=== PATIENT | male | born 1975 | race Caucasian/White ===

== ENCOUNTER 2019-08-20 18:37 | Emergency (ER) | payer BC ==
[~2019-08-20] VITALS: Ht 177.8 cm; Wt 93.1 kg
[2019-08-20] MEDS ORDERED: LACTATED RINGERS 1,000 ML IV ONE (18:41)
--- OUTSIDE RECORDS SUMMARY | 2019-08-20 18:42 | XMS REPORT | CCD ---
Author Author Ankit Jones Organization Lashell Friend MD, [facility] Address [address] [place] [address] Phone Care Team Providers Care Meat Curer Name Role Phone PP Unavailable CCM Unavailable Summary Purpose Interface Exchange Insurance Providers Payer name Policy type / Coverage type Covered libertarian ID Effective Begin Date Effective End Date Blue Cross Blue Shield [facility] e Cross/Blue Shield [id number] Unknown Unk nown Family history Brother Diagnosis Age At Onset No Family Disease Entered N/A Sister Diagnosis Age At Onset No Family Disease Entered N/A Mother Diagnosis Age At Onset Hypertension Unknown Father Diagnosis Age At Onset Skin cancer Unknown Hypertension Unknown Daughter Diagnosis Age At Onset No Family Disease Entered N/A Son Diagnosis Age At Onset No Family Disease Entered N/A Social History Social History Element Codes Description Effective Dates Marital status Unknown M arried 12/28/2012 Number of children Unknown 2 12/28/2012 Employment Unknown 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 08/20/2018 Unknown Essential (primary) hypertension ICD-9: 401.1 ICD-10: I10 Active 08/06/2018 Unknown Essential (primary) hypertension ICD-9: 401.9 ICD-10: I10 Active 02/18/2016 Unknown Angioneurotic edema, initial encounter ICD-9: 995.1 ICD-10: T78.3XXA Active 05/06/2016 Unknown ESSENTIAL HYPERTENSION ICD-9: 401.9 Active 04/28/2014 Unknown Hypertension Unknown Active 12/28/2012 Unknow n Problems Condition Codes Effectiv e Dates Condition Status 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 08/20/2018 Active Essential (primary) hypertension ICD-9: 401.1 ICD-10: I10 08/06/2018 Active Essential (primary) hypertension ICD-9: 401.9 ICD-10: I10 02/18/2016 Active Angioneurotic edema, initial encounter ICD-9: 995.1 ICD-10: T78.3XXA 05/06/2016 Active ESSENTIAL HYPERTENSION ICD-9: 401.9 04/28/2014 Active Hypertension Unknown 12/28/2012 Active Medications Medication Codes Instruc tions Start Date Stop Date Sta tus Fill Instructions atenolol 25 mg tablet RxNorm: 658922 TAKE 1 TABLET BY MOUTH ONCE DAILY 11/01/2018 No Stop Date Active atenolol 25 mg tablet RxNorm: 227167 TAKE 1 TABLET BY MOUTH ONCE DAILY 08/02/2018 10/31/2018 In active atenolol 25 mg tablet RxNorm: 710880 Tablet(s) TAKE ONE TABLET BY MOUTH ONCE DAILY 07/01/2017 06/25/2018 Inactive atenolol 25 mg tablet RxNorm: 482645 TAKE ONE TABLET BY MOUTH ONCE DAILY 06/02/2017 06/30/2017 In active atenolol 25 mg tablet RxNorm: 869263 TAKE ONE TABLET BY MOUTH ONCE DAILY 04/01/2017 06/01/2017 In active atenolol 25 mg tablet RxNorm: 765503 Tablet(s) TAKE ONE TABLET BY MOUTH ONCE DAILY 11/24/2016 03/23/2017 Inactive atenolol 25 mg tablet RxNorm: 581996 TAKE ONE TABLET BY MOUTH ONCE DAILY 08/25/2016 11/22/2016 In active atenolol 25 mg tablet RxNorm: 345993 1 Tablet(s) PO daily 02/19/2016 08/16/2016 Inactive lisinopril 20 mg tablet RxNorm: 530503 1 Tablet(s) PO daily 02/14/2016 02/18/2016 Inactive lisinopril 20 mg tablet RxNorm: 438126 1 Tablet(s) PO daily 02/12/2015 02/06/2016 Inactive lisinopril 10 mg tablet RxNorm: 848632 Tablet(s) TAKE ONE TABLET BY MOUTH ONCE DAILY 02/06/2015 02/11/2015 Inactive lisinopril 20 mg tablet RxNorm: 564402 1 Tablet(s) PO daily 04/28/2014 01/22/2015 Inactive lisinopril 10 mg tablet RxNorm: 758562 TAKE ONE TABLET BY MOUTH ONCE DAILY 04/27/2014 01/20/2015 In active lisinopril 10 mg tablet RxNorm: 513675 1 Tablet(s) PO daily 06/28/2013 03/24/2014 Inactive lisinopril 10 mg tablet RxNorm: 198081 1 Tablet(s) PO daily 12/28/2012 06/25/2013 Inactive lisinopril 10 mg tablet RxNorm: 048477 1 Tablet(s) PO daily No Start Date 12/27/2012 Inactive Medication Administered No Medication Administered data Immunizations Vaccine Codes Date Status Influenza CVX: 141 12/16 completed Tetanus/Diptheria CVX: 09 02/15/1991 completed Assessments Condition Codes Effectiv e Dates Other hemoglobinopathies ICD-10: 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 .2 ICD-9: 282.7 08/20/2018 Essential (primary) hypertension ICD -10: I10 ICD-9: 401.1 08/06/2018 Essential (primary) hypertension ICD -10: I10 ICD-9: 401.9 06/11/2017 Angioneurotic edema, initial encounter ICD-10: T78.3XXA ICD-9: 995.1 05/06/2016 ESSENTIAL HYPERTENSION ICD-9: 401.9 04/28/2014 Reason For Visit Reason For Visit Effective Dates Notes medication follow up 08/06/2018 medication follow up 06/11/2017 medication follow up 05/06/2016 medication follow up 02/19/2016 hypertension 04/28/2014 hypertension 12/28/2012 Results Observation Observation Code Item Item Code Result Date Cbc With Differential Ord2 WBC 6.81 K/ul 08/20/2018 Cbc With Differential Ord2 RBC 5.22 M/ul 08/20/2018 Cbc With Differential Ord2 HGB 17.0 g/dl 08/20/2018 Cbc With Differential Ord2 HCT 48.2 % 08/20/2018 Cbc With Differential Ord2 Neut% 56.1 % 08/20/2018 Cbc With Differential Ord2 MCV 92.3 fl 08/20/2018 Cbc With Differential Ord2 Lymph% 27.3 % 08/20/2018 Cbc With Differential Ord2 MCH 32.6 pg 08/20/2018 Cbc With Differential Ord2 [place]% 15.3 % 08/20/2018 Cbc With Differential Ord2 MCHC 35.3 pg 08/20/2018 Cbc With Differential Ord2 Eos% 0.9 % 08/20/2018 Cbc With Differential Ord2 PLT 263 K/ul 08/20/2018 Cbc With Differential Ord2 Baso% 0.4 % 08/20/2018 Cbc With Differential Ord2 RDW 12.2 % 08/20/2018 Cbc With Differential Ord2 Neut ABS# 3.82 K/ul 08/20/2018 Cbc With Differential Ord2 Lymph ABS# 1.86 K/ul 08/20/2018 Cbc With Differential Ord2 [place] ABS# 1.0 K/ul 08/20/2018 Cbc With Differential Ord2 Eos ABS# 0.1 K/ul 08/20/2018 Cbc With Differential Ord2 Baso ABS# 0.0 K/ul 08/20/2018 [place] 96224 TOMATO <0.10 kU/L 05/08/2016 [place] 79192 ALLERG EN INTERPRETATION 05/08/2016 Allergen Profile Food-Basic 70650 IMMUNOGLOBULIN E . 05/08/2016 Allergen Profile Food-Basic 38229 IMMUNOGLOBULIN E 68 IU/mL 05/08/2016 Allergen Profile Food-Basic 59568 FOOD . 05/08/2016 Allergen Profile Food-Basic 65184 COD <0.10 kU/L 05/08/2016 Allergen Profile Food-Basic 06294 CORN <0.10 kU/L 05/08/2016 Allergen Profile Food-Basic 41355 EGG WHITE 0.44 kU/L 05/08/2016 Allergen Profile Food-Basic 13074 MILK 0.16 kU/L 05/08/2016 Allergen Profile Food-Basic 92889 PEANUT 0.19 kU/L 05/08/2016 Allergen Profile Food-Basic 33332 SHRIMP <0.10 kU/L 05/08/2016 Allergen Profile Food-Basic 00682 SOYBEAN <0.10 kU/L 05/08/2016 Allergen Profile Food-Basic 40442 WALNUT <0.10 kU/L 05/08/2016 Allergen Profile Food-Basic 04756 WHEAT <0.10 kU/L 05/08/2016 Allergen Profile Food-Basic 04210 SESAME SEED <0.10 kU/L 05/08/2016 Allergen Profile Food-Basic 54309 ALLERGEN INTERPRETATION 05/08/2016 Allergen Profile Food-Basic 68808 Clam <0.10 kU/L 05/08/2016 Allergen Profile Food-Basic 10752 SCALLOP <0.10 kU/L 05/08/2016 Cbc With Differential Ord2 WBC 5.95 K/ul 05/06/2016 Cbc With Differential Ord2 RBC 5.21 M/ul 05/06/2016 Cbc With Differential Ord2 HGB 17.1 g/dl 05/06/2016 Cbc With Differential Ord2 HCT 47.2 % 05/06/2016 Cbc With Differential Ord2 Neut% 53.4 % 05/06/2016 Cbc With Differential Ord2 MCV 90.6 fl 05/06/2016 Cbc With Differential Ord2 Lymph% 27.6 % 05/06/2016 Cbc With Differential Ord2 MCH 32.8 pg 05/06/2016 Cbc With Differential Ord2 [place]% 16.3 % 05/06/2016 Cbc With Differential Ord2 MCHC 36.2 pg 05/06/2016 Cbc With Differential Ord2 Eos% 2.0 % 05/06/2016 Cbc With Differential Ord2 PLT 235 K/ul 05/06/2016 Cbc With Differential Ord2 Baso% 0.7 % 05/06/2016 Cbc With Differential Ord2 RDW 12.3 % 05/06/2016 Cbc With Differential Ord2 Neut ABS# 3.18 K/ul 05/06/2016 Cbc With Differential Ord2 Lymph ABS# 1.64 K/ul 05/06/2016 Cbc With Differential Ord2 [place] ABS# 1.0 K/ul 05/06/2016 Cbc With Differential Ord2 Eos ABS# 0.1 K/ul 05/06/2016 Cbc With Differential Ord2 Baso ABS# 0.0 K/ul 05/06/2016 Comp Metabolic Qjs390 NA 138 mEq/L 05/06/2016 Comp Metabolic Sss294 K 4.1 mEq/L 05/06/2016 Comp Metabolic Yuw055 CL 101 mEq/L 05/06/2016 Comp Metabolic Nlk075 CO2 31.0 mEq/L 05/06/2016 Comp Metabolic Rvs533 AN ION GAP 10 05/06/2016 Comp Metabolic Rmt193 GL UCOSE 83 mg/dL 05/06/2016 Comp Metabolic Cnl852 Cr eat 0.9 mg/dL 05/06/2016 Comp Metabolic Dqd040 eG FR 101 ml/min/1.73m2 04/17 Comp Metabolic Lha447 BUN 15 mg/dL 05/06/2016 Comp Metabolic Xyn001 B/ C Ratio 17.0 Ratio 05/06/2016 Comp Metabolic Qnh203 CA LCIUM 9.8 mg/dL 05/06/2016 Comp Metabolic Gfs940 AL K PHOS 46 U/L 05/06/2016 Comp Metabolic Vit804 T(SGOT) 19 U/L 05/06/2016 Comp Metabolic Eje668 AL T(SGPT) 26 U/L 05/06/2016 Comp Metabolic Qak782 BI LI T 0.9 mg/dL 05/06/2016 Comp Metabolic Xzh952 AL BUMIN 4.5 g/dL 05/06/2016 Comp Metabolic Xzy661 TP RO 7.1 g/dL 05/06/2016 Comp Metabolic Phh687 GL OB 2.6 g/dL 05/06/2016 Comp Metabolic Szm025 A/ G Ratio 1.7 Ratio 05/06/2016 Comp Metabolic Xbz769 Os mo 276 mOsmo 05/06/2016 Comp Metabolic Tko612 NA 134 mEq/L 12/15/2014 Comp Metabolic Grs421 K 4.4 mEq/L 12/15/2014 Comp Metabolic Ysz678 CL 100 mEq/L 12/15/2014 Comp Metabolic Ife351 CO2 29.0 mEq/L 12/15/2014 Comp Metabolic Tpl139 AN ION GAP 9 12/15/2014 Comp Metabolic Qun923 GL UCOSE 84 mg/dL 12/15/2014 Comp Metabolic Pxc890 Cr eat 1.0 mg/dL 12/15/2014 Comp Metabolic Tzl903 eG FR 93 ml/min/1.73m2 12/15 Comp Metabolic Isv184 BUN 16 mg/dL 12/15/2014 Comp Metabolic Qat221 B/ C Ratio 16.8 Ratio 12/15/2014 Comp Metabolic Xvp967 CA LCIUM 9.5 mg/dL 12/15/2014 Comp Metabolic Llk498 AL K PHOS 50 U/L 12/15/2014 Comp Metabolic Ugh466 T(SGOT) 20 U/L 12/15/2014 Comp Metabolic Qdg965 AL T(SGPT) 30 U/L 12/15/2014 Comp Metabolic Qnc472 BI LI T 0.9 mg/dL 12/15/2014 Comp Metabolic Ocu197 AL BUMIN 4.6 g/dL 12/15/2014 Comp Metabolic Hmy489 TP RO 7.2 g/dL 12/15/2014 Comp Metabolic Scs250 GL OB 2.7 g/dL 12/15/2014 Comp Metabolic Phm544 A/ G Ratio 1.7 Ratio 12/15/2014 Comp Metabolic Fyg411 Os mo 269 mOsmo 12/15/2014 Cbc With Differential Ord2 WBC 5.8 K/uL 12/15/2014 Cbc With Differential Ord2 LYM 1.8 K/uL 12/15/2014 Cbc With Differential Ord2 LYM% 31.6 % 12/15/2014 Cbc With Differential Ord2 NEUT/GRAN 3.4 K/uL 12/15/2014 Cbc With Differential Ord2 NEUT/GRAN % 59.3 % 12/15/2014 Cbc With Differential Ord2 MID 0.5 K/uL 12/15/2014 Cbc With Differential Ord2 MID% 9.1 % 12/15/2014 Cbc With Differential Ord2 RBC 5.02 M/uL 12/15/2014 Cbc With Differential Ord2 HGB 16.4 g/dL 12/15/2014 Cbc With Differential Ord2 HCT 49.4 % 12/15/2014 Cbc With Differential Ord2 MCV 98 fL 12/15/2014 Cbc With Differential Ord2 MCH 33 pg 12/15/2014 Cbc With Differential Ord2 MCHC 33 g/dL 12/15/2014 Cbc With Differential Ord2 PLT 270 K/uL 12/15/2014 Cbc With Differential Ord2 RDW 13.7 % 12/15/2014 Lipid Ord30 CHOL 198 mg/dL 12/15/2014 Lipid Ord30 HDL 40.0 mg/dl 12/15/2014 Lipid Ord30 TRIG 140 mg/dL 12/15/2014 Lipid Ord30 LDL 130 mg/dL 12/15/2014 Lipid Ord30 C/HDL 5.0 Ratio 12/15/2014 Review of Systems System Result Effective Dates Constitutional No recent illness 08/06/2018 Constitutional No chills 08/06/2018 Constitutional No diaphoresis 08/06/2018 Constitutional No fever 08/06/2018 Eyes No eye erythema Ears/Nose/Throat/Neck No nasal discharge 08/06/2018 Cardiovascular No chest pain/pressure 08/06/2018 Cardiovascular No dyspnea 08/06/2018 Respiratory No chest congestion 08/06/2018 Respiratory No cough Gastrointestinal No abdominal pain 08/06/2018 Neurologic No alteration of consciousness 08/06/2018 Neurologic No mental status change 08/06/2018 Eyes No eye discharge Eyes No eye erythema Ears/Nose/Throat/Neck No dizziness 06/11/2017 Ears/Nose/Throat/Neck No headache 06/11/2017 Cardiovascular No chest pain/pressure 06/11/2017 Respiratory No cough Gastrointestinal No abdominal pain 06/11/2017 Musculoskeletal No joint complaint 06/11/2017 Neurologic No alteration of consciousness 06/11/2017 Constitutional No recent illness 06/11/2017 Constitutional No chills 06/11/2017 Constitutional No diaphoresis 06/11/2017 Constitutional No fever 06/11/2017 Respiratory No chest congestion 06/11/2017 Gastrointestinal No constipation 06/11/2017 Gastrointestinal No diarrhea 06/11/2017 Gastrointestinal No vomiting 06/11/2017 Gastrointestinal No nausea 06/11/2017 Gastrointestinal No melena 06/11/2017 Gastrointestinal No hematochezia 06/11/2017 Dermatologic No rash Neurologic No mental status change 06/11/2017 Constitutional No recent illness 05/06/2016 Constitutional No anorexia 05/06/2016 Constitutional No night sweats 05/06/2016 Constitutional No chills 05/06/2016 Constitutional No diaphoresis 05/06/2016 Constitutional No fatigue 05/06/2016 Constitutional No fever 05/06/2016 Constitutional No insomnia 05/06/2016 Constitutional No malaise 05/06/2016 Constitutional No weight loss 05/06/2016 Constitutional No weight gain 05/06/2016 Eyes No eye discharge Eyes No eye erythema Ears/Nose/Throat/Neck No dizziness 05/06/2016 Ears/Nose/Throat/Neck No headache 05/06/2016 Cardiovascular No chest pain/pressure 05/06/2016 Respiratory No cough Gastrointestinal No abdominal pain 05/06/2016 Genitourinary/Nephrology No dysuria 05/06/2016 Musculoskeletal No joint complaint 05/06/2016 Dermatologic No sores Neurologic No alteration of consciousness 05/06/2016 Psychiatric No anxiety 0 05/06/2016 Endocrine No dry or coarse skin 05/06/2016 Hematologic/Lymphatic No abnormal bl eeding and bruising 05/06/2016 Allergy/Immunology angioedema 05/06/2016 Constitutional No recent illness 02/19/2016 Constitutional No anorexia 02/19/2016 Constitutional No night sweats 02/19/2016 Constitutional No chills 02/19/2016 Constitutional No diaphoresis 02/19/2016 Constitutional No fatigue 02/19/2016 Constitutional No fever 02/19/2016 Constitutional No insomnia 02/19/2016 Constitutional No weight loss 02/19/2016 Constitutional No weight gain 02/19/2016 Constitutional No malaise 02/19/2016 Eyes No eye erythema 04/2016 Eyes No eye discharge Ears/Nose/Throat/Neck No dizziness 02/19/2016 Ears/Nose/Throat/Neck No headache 02/19/2016 Cardiovascular No chest pain/pressure 02/19/2016 Respiratory No cough 04/2016 Genitourinary/Nephrology No dysuria 02/19/2016 Gastrointestinal No abdominal pain 02/19/2016 Musculoskeletal No joint complaint 02/19/2016 Dermatologic No sores Neurologic No alteration of consciousness 02/19/2016 Psychiatric No anxiety 0 02/19/2016 Endocrine No dry or coarse skin 02/19/2016 Hematologic/Lymphatic No abnormal bl eeding and bruising 02/19/2016 Allergy/Immunology angioedema 02/19/2016 Constitutional No recent illness 04/28/2014 Constitutional No anorexia 04/28/2014 Constitutional No night sweats 04/28/2014 Constitutional No chills 04/28/2014 Constitutional No diaphoresis 04/28/2014 Constitutional No fatigue 04/28/2014 Constitutional No fever 04/28/2014 Constitutional No insomnia 04/28/2014 Constitutional No malaise 04/28/2014 Eyes No eye discharge Eyes No eye erythema Ears/Nose/Throat/Neck No dental pain 04/28/2014 Ears/Nose/Throat/Neck No dizziness 04/28/2014 Ears/Nose/Throat/Neck No dysphagia 04/28/2014 Ears/Nose/Throat/Neck No headache 04/28/2014 Ears/Nose/Throat/Neck No hearing loss 04/28/2014 Ears/Nose/Throat/Neck No nasal allergies 04/28/2014 Ears/Nose/Throat/Neck No nasal discharge 04/28/2014 Ears/Nose/Throat/Neck No postnasal drip 04/28/2014 Ears/Nose/Throat/Neck No sinus congestion 04/28/2014 Ears/Nose/Throat/Neck No sore throat 04/28/2014 Cardiovascular No arrhythmia 04/28/2014 Cardiovascular No chest pain/pressure 04/28/2014 Cardiovascular No dyspnea 04/28/2014 Cardiovascular No edema 04/28/2014 Cardiovascular No exercise intolerance 04/28/2014 Cardiovascular No fatigue 04/28/2014 Cardiovascular No near-syncope/dizziness 04/28/2014 Cardiovascular No orthopnea 04/28/2014 Cardiovascular No palpitations 04/28/2014 Respiratory No asthma Respiratory No pleuritic pain 04/28/2014 Respiratory No productive sputum 04/28/2014 Respiratory No chest tightness 04/28/2014 Respiratory No cigarette smoking 04/28/2014 Respiratory No cough Respiratory No dyspnea 0 04/28/2014 Respiratory No pedal edema 04/28/2014 Respiratory No snoring 0 04/28/2014 Respiratory No wheezing 04/28/2014 Gastrointestinal No hemorrhoids 04/28/2014 Gastrointestinal No abdominal pain 04/28/2014 Gastrointestinal No constipation 04/28/2014 Gastrointestinal No diarrhea 04/28/2014 Gastrointestinal No gastroesophageal reflu x 04/28/2014 Gastrointestinal No melena 04/28/2014 Gastrointestinal No nausea 04/28/2014 Gastrointestinal No vomiting 04/28/2014 Genitourinary/Nephrology No dysuria 04/28/2014 Genitourinary/Nephrology No nocturia 04/28/2014 Genitourinary/Nephrology No urinary incontinence 04/28/2014 Musculoskeletal No stiffness 04/28/2014 Musculoskeletal No swelling 04/28/2014 Musculoskeletal No muscle weakness 04/28/2014 Musculoskeletal No myalgias 04/28/2014 Dermatologic No rash Dermatologic No scar Constitutional No recent illness 12/28/2012 Constitutional No anorexia 12/28/2012 Constitutional No night sweats 12/28/2012 Constitutional No chills 12/28/2012 Constitutional No diaphoresis 12/28/2012 Constitutional No fatigue 12/28/2012 Constitutional No fever 12/28/2012 Constitutional No insomnia 12/28/2012 Constitutional No malaise 12/28/2012 Eyes No eye discharge Eyes No eye erythema 01/2013 Ears/Nose/Throat/Neck No dental pain 12/28/2012 Ears/Nose/Throat/Neck No dizziness 12/28/2012 Ears/Nose/Throat/Neck No dysphagia 12/28/2012 Ears/Nose/Throat/Neck No headache 12/28/2012 Ears/Nose/Throat/Neck No hearing loss 12/28/2012 Ears/Nose/Throat/Neck No nasal allergies 12/28/2012 Ears/Nose/Throat/Neck No nasal discharge 12/28/2012 Ears/Nose/Throat/Neck No postnasal drip 12/28/2012 Ears/Nose/Throat/Neck No sinus congestion 12/28/2012 Ears/Nose/Throat/Neck No sore throat 12/28/2012 Cardiovascular No arrhythmia 12/28/2012 Cardiovascular No chest pain/pressure 12/28/2012 Cardiovascular No dyspnea 12/28/2012 Cardiovascular No edema 12/28/2012 Cardiovascular No exercise intolerance 12/28/2012 Cardiovascular No fatigue 12/28/2012 Cardiovascular No near-syncope/dizziness 12/28/2012 Cardiovascular No orthopnea 12/28/2012 Cardiovascular No palpitations 12/28/2012 Respiratory No asthma Respiratory No pleuritic pain 12/28/2012 Respiratory No productive sputum 12/28/2012 Respiratory No chest tightness 12/28/2012 Respiratory No cigarette smoking 12/28/2012 Respiratory No cough 01/2013 Respiratory No dyspnea 1 02/28/2012 Respiratory No pedal edema 12/28/2012 Respiratory No snoring 1 02/28/2012 Respiratory No wheezing 12/28/2012 Gastrointestinal No hemorrhoids 12/28/2012 Gastrointestinal No abdominal pain 12/28/2012 Gastrointestinal No constipation 12/28/2012 Gastrointestinal No diarrhea 12/28/2012 Gastrointestinal No gastroesophageal reflu x 12/28/2012 Gastrointestinal No melena 12/28/2012 Gastrointestinal No nausea 12/28/2012 Gastrointestinal No vomiting 12/28/2012 Genitourinary/Nephrology No dysuria 12/28/2012 Genitourinary/Nephrology No nocturia 12/28/2012 Genitourinary/Nephrology No urinary incontinence 12/28/2012 Musculoskeletal No stiffness 12/28/2012 Musculoskeletal No swelling 12/28/2012 Musculoskeletal No muscle weakness 12/28/2012 Musculoskeletal No myalgias 12/28/2012 Dermatologic No rash 01/2013 Dermatologic No scar 01/2013 Physical Exam Exam Name System Name It em Name Status Result Effective Dates Notes Full Exam - General 1994 Constitutional general appearance Overall: well developed 08/06/2018 None Full Exam - General 1994 Constitutional general appearance Overall: in no acute distress 08/06/2018 None Full Exam - General 1994 Constitutional general appearance Overall: well nourished 08/06/2018 None Full Exam - General 1994 Eyes conjunctiva/eyelids Overall: conjunctiva clear 08/06/2018 None Full Exam - General 1994 Eyes conjunctiva/eyelids Overall: cornea clear 08/06/2018 None Full Exam - General 1994 Eyes conjunctiva/eyelids Overall: eyelids normal 08/06/2018 None Full Exam - General 1994 Ears/Nose/Throat lips/teeth/gingiva Overall: benign lips 08/06/2018 None Full Exam - General 1994 Ears/Nose/Throat oral cavity/pharynx/larynx Overall: oral mucosa clear 08/06/2018 None Full Exam - General 1994 Ears/Nose/Throat oral cavity/pharynx/larynx Overall: oropharyngeal mucosa clear 08/06/2018 None Full Exam - General 1994 Respiratory auscultation Overall: breath sounds clear bilaterally 08/06/2018 None Full Exam - General 1994 Respiratory respiratory effort/rhythm Overall: no retractions 08/06/2018 None Full Exam - General 1994 Respiratory respiratory effort/rhythm Overall: normal rate 08/06/2018 None Full Exam - General 1994 Cardiovascular auscultation of heart Overall: regular rate 08/06/2018 None Full Exam - General 1994 Cardiovascular auscultation of heart Overall: normal heart sounds 08/06/2018 None Full Exam - General 1994 Musculoskeletal head and neck Overall: head atraumatic 08/06/2018 None Full Exam - General 1994 Neurologic cranial nerves Overall: crainial nerves 2 - 12 grossly intact 08/06/2018 None Full Exam - General 1994 Psychiatric orientation/consciousness Overall: oriented to person, place and time 08/06/2018 None Full Exam - General 1994 Psychiatric mood and affect Overall: normal mood and affect 08/06/2018 None Full Exam - General 1994 Psychiatric appearance Overall: well-groomed, good eye contact 08/06/2018 None Full Exam - General 1994 Constitutional general appearance Overall: well developed 06/11/2017 None Full Exam - General 1994 Constitutional general appearance Overall: in no acute distress 06/11/2017 None Full Exam - General 1994 Constitutional general appearance Overall: well nourished 06/11/2017 None Full Exam - General 1994 Eyes conjunctiva/eyelids Overall: conjunctiva clear 06/11/2017 None Full Exam - General 1994 Eyes conjunctiva/eyelids Overall: cornea clear 06/11/2017 None Full Exam - General 1994 Eyes conjunctiva/eyelids Overall: eyelids normal 06/11/2017 None Full Exam - General 1994 Eyes pupils and irises Overall: pupils equal, round, reactive to light and accomodation 06/11/2017 None Full Exam - General 1994 Ears/Nose/Throat otoscopic exam Overall: external auditory canals clear 06/11/2017 None Full Exam - General 1994 Ears/Nose/Throat otoscopic exam Overall: tympanic membranes clear 06/11/2017 None Full Exam - General 1994 Ears/Nose/Throat oral cavity/pharynx/larynx Overall: oral mucosa clear 06/11/2017 None Full Exam - General 1994 Ears/Nose/Throat oral cavity/pharynx/larynx Overall: oropharyngeal mucosa clear 06/11/2017 None Full Exam - General 1994 Ears/Nose/Throat oral cavity/pharynx/larynx Overall: no masses 06/11/2017 None Full Exam - General 1994 Respiratory auscultation Overall: breath sounds clear bilaterally 06/11/2017 None Full Exam - General 1994 Respiratory respiratory effort/rhythm Overall: no retractions 06/11/2017 None Full Exam - General 1994 Respiratory respiratory effort/rhythm Overall: normal rate 06/11/2017 None Full Exam - General 1994 Cardiovascular extremities Overall: no clubbing 06/11/2017 None Full Exam - General 1994 Cardiovascular auscultation of heart Overall: regular rate 06/11/2017 None Full Exam - General 1994 Cardiovascular auscultation of heart Overall: normal heart sounds 06/11/2017 None Full Exam - General 1994 Cardiovascular auscultation of heart Murmur: previously known murmur unchanged 06/11/2017 None Full Exam - General 1994 Cardiovascular auscultation of heart Systolic murmur: holosystolic 06/11/2017 None Full Exam - General 1994 Cardiovascular auscultation of heart Systolic murmur grade: II/ 06/11/2017 None Full Exam - General 1994 Abdomen abdominal exam Overall: no tenderness 06/11/2017 None Full Exam - General 1994 Abdomen abdominal exam Overall: normal bowel sounds 06/11/2017 None Full Exam - General 1994 Lymphatic neck nodes Overall: anterior cervical chain benign 06/11/2017 None Full Exam - General 1994 Lymphatic neck nodes Overall: posterior cervical chain benign 06/11/2017 None Full Exam - General 1994 Neurologic cranial nerves Overall: crainial nerves 2 - 12 grossly intact 06/11/2017 None Full Exam - General 1994 Psychiatric orientation/consciousness Overall: oriented to person, place and time 06/11/2017 None Full Exam - General 1994 Ears/Nose/Throat lips/teeth/gingiva Overall: benign lips 06/11/2017 None Full Exam - General 1994 Musculoskeletal head and neck Overall: head atraumatic 06/11/2017 None Full Exam - General 1994 Musculoskeletal gait and station Overall: normal station 06/11/2017 None Full Exam - General 1994 Musculoskeletal gait and station Overall: normal gait 06/11/2017 None Full Exam - General 1994 Psychiatric mood and affect Overall: normal mood and affect 06/11/2017 None Full Exam - General 1994 Psychiatric appearance Overall: well-groomed, good eye contact 06/11/2017 None Full Exam - General 1994 Constitutional general appearance Overall: well developed 05/06/2016 None Full Exam - General 1994 Constitutional general appearance Overall: in no acute distress 05/06/2016 None Full Exam - General 1994 Constitutional general appearance Overall: well nourished 05/06/2016 None Full Exam - General 1994 Eyes conjunctiva/eyelids Overall: conjunctiva clear 05/06/2016 None Full Exam - General 1994 Eyes conjunctiva/eyelids Overall: cornea clear 05/06/2016 None Full Exam - General 1994 Eyes conjunctiva/eyelids Overall: eyelids normal 05/06/2016 None Full Exam - General 1994 Eyes pupils and irises Overall: pupils equal, round, reactive to light and accomodation 05/06/2016 None Full Exam - General 1994 Ears/Nose/Throat otoscopic exam Overall: external auditory canals clear 05/06/2016 None Full Exam - General 1994 Ears/Nose/Throat otoscopic exam Overall: tympanic membranes clear 05/06/2016 None Full Exam - General 1994 Ears/Nose/Throat oral cavity/pharynx/larynx Overall: oral mucosa clear 05/06/2016 None Full Exam - General 1994 Ears/Nose/Throat oral cavity/pharynx/larynx Overall: oropharyngeal mucosa clear 05/06/2016 None Full Exam - General 1994 Ears/Nose/Throat oral cavity/pharynx/larynx Overall: no masses 05/06/2016 None Full Exam - General 1994 Respiratory auscultation Overall: breath sounds clear bilaterally 05/06/2016 None Full Exam - General 1994 Respiratory respiratory effort/rhythm Overall: no retractions 05/06/2016 None Full Exam - General 1994 Respiratory respiratory effort/rhythm Overall: normal rate 05/06/2016 None Full Exam - General 1994 Cardiovascular extremities Overall: no clubbing 05/06/2016 None Full Exam - General 1994 Cardiovascular auscultation of heart Overall: regular rate 05/06/2016 None Full Exam - General 1994 Cardiovascular auscultation of heart Overall: normal heart sounds 05/06/2016 None Full Exam - General 1994 Cardiovascular auscultation of heart Murmur: previously known murmur unchanged 05/06/2016 None Full Exam - General 1994 Cardiovascular auscultation of heart Systolic murmur: holosystolic 05/06/2016 None Full Exam - General 1994 Cardiovascular auscultation of heart Systolic murmur grade: II/ 05/06/2016 None Full Exam - General 1994 Abdomen abdominal exam Overall: no tenderness 05/06/2016 None Full Exam - General 1994 Abdomen abdominal exam Overall: normal bowel sounds 05/06/2016 None Full Exam - General 1994 Lymphatic neck nodes Overall: anterior cervical chain benign 05/06/2016 None Full Exam - General 1994 Lymphatic neck nodes Overall: posterior cervical chain benign 05/06/2016 None Full Exam - General 1994 Neurologic cranial nerves Overall: crainial nerves 2 - 12 grossly intact 05/06/2016 None Full Exam - General 1994 Psychiatric orientation/consciousness Overall: oriented to person, place and time 05/06/2016 None Full Exam - General 1994 Integument inspection of skin Overall: few scattered moles, no gross abnormalities 05/06/2016 None Full Exam - General 1994 Constitutional general appearance Overall: well developed 02/19/2016 None Full Exam - General 1994 Constitutional general appearance Overall: in no acute distress 02/19/2016 None Full Exam - General 1994 Constitutional general appearance Overall: well nourished 02/19/2016 None Full Exam - General 1994 Eyes conjunctiva/eyelids Overall: conjunctiva clear 02/19/2016 None Full Exam - General 1994 Eyes conjunctiva/eyelids Overall: cornea clear 02/19/2016 None Full Exam - General 1994 Eyes conjunctiva/eyelids Overall: eyelids normal 02/19/2016 None Full Exam - General 1994 Eyes pupils and irises Overall: pupils equal, round, reactive to light and accomodation 02/19/2016 None Full Exam - General 1994 Ears/Nose/Throat otoscopic exam Overall: external auditory canals clear 02/19/2016 None Full Exam - General 1994 Ears/Nose/Throat otoscopic exam Overall: tympanic membranes clear 02/19/2016 None Full Exam - General 1994 Ears/Nose/Throat oral cavity/pharynx/larynx Overall: oral mucosa clear 02/19/2016 None Full Exam - General 1994 Ears/Nose/Throat oral cavity/pharynx/larynx Overall: oropharyngeal mucosa clear 02/19/2016 None Full Exam - General 1994 Ears/Nose/Throat oral cavity/pharynx/larynx Overall: no masses 02/19/2016 None Full Exam - General 1994 Respiratory auscultation Overall: breath sounds clear bilaterally 02/19/2016 None Full Exam - General 1994 Respiratory respiratory effort/rhythm Overall: no retractions 02/19/2016 None Full Exam - General 1994 Respiratory respiratory effort/rhythm Overall: normal rate 02/19/2016 None Full Exam - General 1994 Cardiovascular extremities Overall: no clubbing 02/19/2016 None Full Exam - General 1994 Cardiovascular auscultation of heart Overall: regular rate 02/19/2016 None Full Exam - General 1994 Cardiovascular auscultation of heart Overall: normal heart sounds 02/19/2016 None Full Exam - General 1994 Cardiovascular auscultation of heart Murmur: previously known murmur unchanged 02/19/2016 None Full Exam - General 1994 Cardiovascular auscultation of heart Systolic murmur: holosystolic 02/19/2016 None Full Exam - General 1994 Cardiovascular auscultation of heart Systolic murmur grade: II/ 02/19/2016 None Full Exam - General 1994 Abdomen abdominal exam Overall: no tenderness 02/19/2016 None Full Exam - General 1994 Abdomen abdominal exam Overall: normal bowel sounds 02/19/2016 None Full Exam - General 1994 Lymphatic neck nodes Overall: anterior cervical chain benign 02/19/2016 None Full Exam - General 1994 Lymphatic neck nodes Overall: posterior cervical chain benign 02/19/2016 None Full Exam - General 1994 Neurologic cranial nerves Overall: crainial nerves 2 - 12 grossly intact 02/19/2016 None Full Exam - General 1994 Psychiatric orientation/consciousness Overall: oriented to person, place and time 02/19/2016 None Full Exam - General 1994 Constitutional general appearance Overall: well developed 04/28/2014 None Full Exam - General 1994 Constitutional general appearance Overall: in no acute distress 04/28/2014 None Full Exam - General 1994 Constitutional general appearance Overall: well nourished 04/28/2014 None Full Exam - General 1994 Eyes conjunctiva/eyelids Overall: conjunctiva clear 04/28/2014 None Full Exam - General 1994 Eyes conjunctiva/eyelids Overall: cornea clear 04/28/2014 None Full Exam - General 1994 Eyes conjunctiva/eyelids Overall: eyelids normal 04/28/2014 None Full Exam - General 1994 Eyes pupils and irises Overall: pupils equal, round, reactive to light and accomodation 04/28/2014 None Full Exam - General 1994 Ears/Nose/Throat otoscopic exam Overall: external auditory canals clear 04/28/2014 None Full Exam - General 1994 Ears/Nose/Throat otoscopic exam Overall: tympanic membranes clear 04/28/2014 None Full Exam - General 1994 Ears/Nose/Throat oral cavity/pharynx/larynx Overall: oral mucosa clear 04/28/2014 None Full Exam - General 1994 Ears/Nose/Throat oral cavity/pharynx/larynx Overall: oropharyngeal mucosa clear 04/28/2014 None Full Exam - General 1994 Ears/Nose/Throat oral cavity/pharynx/larynx Overall: no masses 04/28/2014 None Full Exam - General 1994 Respiratory auscultation Overall: breath sounds clear bilaterally 04/28/2014 None Full Exam - General 1994 Respiratory respiratory effort/rhythm Overall: no retractions 04/28/2014 None Full Exam - General 1994 Respiratory respiratory effort/rhythm Overall: normal rate 04/28/2014 None Full Exam - General 1994 Cardiovascular extremities Overall: no clubbing 04/28/2014 None Full Exam - General 1994 Cardiovascular auscultation of heart Overall: regular rate 04/28/2014 None Full Exam - General 1994 Cardiovascular auscultation of heart Overall: normal heart sounds 04/28/2014 None Full Exam - General 1994 Abdomen abdominal exam Overall: no tenderness 04/28/2014 None Full Exam - General 1994 Abdomen abdominal exam Overall: normal bowel sounds 04/28/2014 None Full Exam - General 1994 Lymphatic neck nodes Overall: anterior cervical chain benign 04/28/2014 None Full Exam - General 1994 Lymphatic neck nodes Overall: posterior cervical chain benign 04/28/2014 None Full Exam - General 1994 Neurologic cranial nerves Overall: crainial nerves 2 - 12 grossly intact 04/28/2014 None Full Exam - General 1994 Psychiatric orientation/consciousness Overall: oriented to person, place and time 04/28/2014 None Full Exam - General 1994 Cardiovascular auscultation of heart Murmur: previously known murmur unchanged 04/28/2014 None Full Exam - General 1994 Cardiovascular auscultation of heart Systolic murmur: holosystolic 04/28/2014 None Full Exam - General 1994 Cardiovascular auscultation of heart Systolic murmur grade: II/ 04/28/2014 None Full Exam - General 1994 Psychiatric orientation/consciousness Overall: oriented to person, place and time 12/28/2012 None Full Exam - General 1994 Neurologic cranial nerves Overall: crainial nerves 2 - 12 grossly intact 12/28/2012 None Full Exam - General 1994 Lymphatic neck nodes Overall: anterior cervical chain benign 12/28/2012 None Full Exam - General 1994 Lymphatic neck nodes Overall: posterior cervical chain benign 12/28/2012 None Full Exam - General 1994 Cardiovascular auscultation of heart Overall: regular rate 12/28/2012 None Full Exam - General 1994 Cardiovascular auscultation of heart Overall: normal heart sounds 12/28/2012 None Full Exam - General 1994 Cardiovascular auscultation of heart Overall: no murmurs 12/28/2012 None Full Exam - General 1994 Cardiovascular extremities Overall: no clubbing 12/28/2012 None Full Exam - General 1994 Abdomen abdominal exam Overall: no tenderness 12/28/2012 None Full Exam - General 1994 Abdomen abdominal exam Overall: normal bowel sounds 12/28/2012 None Full Exam - General 1994 Respiratory auscultation Overall: breath sounds clear bilaterally 12/28/2012 None Full Exam - General 1994 Respiratory respiratory effort/rhythm Overall: normal rate 12/28/2012 None Full Exam - General 1994 Respiratory respiratory effort/rhythm Overall: no retractions 12/28/2012 None Full Exam - General 1994 Ears/Nose/Throat otoscopic exam Overall: tympanic membranes clear 12/28/2012 None Full Exam - General 1994 Ears/Nose/Throat otoscopic exam Overall: external auditory canals clear 12/28/2012 None Full Exam - General 1994 Ears/Nose/Throat oral cavity/pharynx/larynx Overall: oropharyngeal mucosa clear 12/28/2012 None Full Exam - General 1994 Ears/Nose/Throat oral cavity/pharynx/larynx Overall: no masses 12/28/2012 None Full Exam - General 1994 Ears/Nose/Throat oral cavity/pharynx/larynx Overall: oral mucosa clear 12/28/2012 None Full Exam - General 1994 Eyes conjunctiva/eyelids Overall: conjunctiva clear 12/28/2012 None Full Exam - General 1994 Eyes conjunctiva/eyelids Overall: eyelids normal 12/28/2012 None Full Exam - General 1994 Eyes conjunctiva/eyelids Overall: cornea clear 12/28/2012 None Full Exam - General 1994 Eyes pupils and irises Overall: pupils equal, round, reactive to light and accomodation 12/28/2012 None Full Exam - General 1994 Constitutional general appearance Overall: well nourished 12/28/2012 None Full Exam - General 1994 Constitutional general appearance Overall: well developed 12/28/2012 None Full Exam - General 1994 Constitutional general appearance Overall: in no acute distress 12/28/2012 None Procedures No Procedures data Vital Signs Date Vital 08/06/2018 Blood Pressure 1: 132/80 Code: 8480-6 BMI: 29.1 Code: 71692-0 Heart Rate 1: 75 bpm Height: 5'11" SpO2: 97% Weight: 209 lbs 06/11/2017 Blood Pressure 1: 122/84 Code: 8480-6 BMI: 29.0 Code: 58860-9 Heart Rate 1: 80 bpm Height: 5'11" SpO2: 97% Weight: 208 lbs 05/06/2016 Blood Pressure 1: 124/72 Code: 8480-6 BMI: 28.6 Code: 71929-9 Heart Rate 1: 81 bpm Height: 5'11" SpO2: 96% Weight: 205 lbs 02/19/2016 Blood Pressure 1: 134/74 Code: 8480-6 BMI: 27.9 Code: 09550-2 Heart Rate 1: 106 bpm Height: 5'11" SpO2: 97% Weight: 200 lbs 04/28/2014 Blood Pressure 1: 150/100 Code: 8480-6 BMI: 26.8 Code: 02038-8 Heart Rate 1: 88 bpm Height: 5'11" Weight: 192 lbs 12/28/2012 Blood Pressure 1: 122/88 Code: 8480-6 BMI: 27.6 Code: 11512-3 Heart Rate 1: 72 bpm Height: 5'11" Weight: 198 lbs Functional Status No Functional Status data History of Present Illness Symptom Name Status Resu lt Effective Date Notes Additional Comments me dication use 08/06/2018 None Location oral intake 08/06/2018 None medication follow up Location oral intake 06/11/2017 None medication follow up Location oral intake 05/06/2016 None edema Onset and Resolution sudden in onset 05/06/2016 None edema Triggers no known associated factors 05/06/2016 None edema Location on the fa ce 05/06/2016 None edema Onset of Symptom 2 months ago 05/06/2016 None edema Limitation on Activities does not limit activities 05/06/2016 None edema Onset and Resolution ongoing 05/06/2016 None edema Pertinent Findings Denies dyspnea 05/06/2016 None edema Quality acute 05/06/2016 None edema Quality painless 05/06/2016 None medication follow up Additional Comments medication use 02/19/2016 None medication follow up Location oral intake 02/19/2016 None edema Onset and Resolution sudden in onset 02/19/2016 None edema Onset of Symptom 2 weeks ago 02/19/2016 None edema Triggers no known associated factors 02/19/2016 None edema Location on the fa ce 02/19/2016 None hypertension Quality chr onic 04/28/2014 None hypertension Onset and Resolution ongoing 04/28/2014 None hypertension Blood Pressure Values not checking blood pressure at home 04/28/2014 None hypertension Severity no t consistently severe symptoms, the symptoms fluctuate from no symptoms to anxiety and headaches 04/28/2014 None hypertension Frequency of Episodes unchanged 04/28/2014 None hypertension Triggers no known associated factors 04/28/2014 None hypertension Pertinent Findings Denies decreased energy 04/28/2014 None hypertension Pertinent Findings Denies dizziness 04/28/2014 None hypertension Significant Family History hypertension 04/28/2014 None hypertension Quality chr onic 12/28/2012 None hypertension Onset and Resolution ongoing 12/28/2012 None hypertension Blood Pressure Values not checking blood pressure at home 12/28/2012 None hypertension Severity no t consistently severe symptoms, the symptoms fluctuate from no symptoms to anxiety and headaches 12/28/2012 None hypertension Frequency of Episodes unchanged 12/28/2012 None hypertension Triggers no known associated factors 12/28/2012 None hypertension Pertinent Findings Denies decreased energy 12/28/2012 None hypertension Pertinent Findings Denies dizziness 12/28/2012 None Advance Directives No Advance Directive data Encounters Encounter Performer Loca tion Codes Date [id number] EST. PATIENT, LEVEL III Diagnosis: Essential (primary) hypertension[ICD10: I10] [facility] CPT-4: 92510 08/06/2018 [id number] EST. PATIENT, LEVEL III Diagnosis: Essential (primary) hypertension[ICD10: I10] [facility] CPT-4: 78803 06/11/2017 ([id number]) 86008 EST. P ATIENT, LEVEL III Diagnosis: Angioneurotic edema, initial encounter[ICD10: T78.3XXA] Diagnosis: Essential (primary) hypertension[ICD10: I10] [facility] CPT-4: 57498 05/06/2016 ([id number]) 63995 EST. P ATIENT, LEVEL III Diagnosis: Essential (primary) hypertension[ICD10: I10] [facility] CPT-4: 59225 02/19/2016 ([id number]) 50630 EST. P ATIENT, LEVEL III Diagnosis: ESSENTIAL HYPERTENSION[ICD9: 401.9] Yasmin Friend MD, [facility] CPT-4: 38144 04/28/2014 ([id number]) OFFICE/OUTPA TIENT VISIT NEW Diagnosis: ESSENTIAL HYPERTENSION[SNOMED: 16168919] [facility] CPT-4: 30727 12/28/2012 Plan of Care Planned Activity Notes C odes Status Date Patient Education: Patient Medication Summary Completed 08/20/2018 Visit Plan: Hypertension - well con trolled - continue with current medications, continue with no added salt diet. Pt has been encouraged to exercise daily. The pt has been advised to call the office if there are any acute concerns about change in blood pressure readings at home. 08/06/2018 [facility]ment[facility] [phone] [phone] ([facility] 08/06/2018 Patient Education: Patient Medication Summary Completed 08/06/2018 Visit Plan: Hypertension - well con trolled - continue with current medications, continue with no added salt diet. Pt has been encouraged to exercise daily. The pt has been advised to call the office if there are any acute concerns about change in blood pressure readings at home. 06/11/2017 Appointment: Chel Terrell WPtel: [phone] (15 min) Moderate 06/11/2017 Patient Education: Patient Medication Summary Completed 06/11/2017 Visit Plan: Swelling of lips-d/c'd rylee inhibitor and symptoms persist intermittently-notices more after tomato based foods-will check basic food allergy panel as well as tomato. Instructed patient to call if symptoms persist or worsen. Patient verbalized understanding of plan. 05/06/2016 Appointment: Yasmin Jones WPtel: [phone] (15 min) Moderate 05/06/2016 Patient Education: Patient Medication Summary Completed 05/06/2016 Patient Education: Obesity Completed 05/06/2016 Visit Plan: Hypertension - well con trolled - continue with current medications, continue with no added salt diet. Pt has been encouraged to exercise daily. The pt has been advised to call the office if there are any acute concerns about change in blood pressure readings at home. SUSPECT LISINOPRIL CAUSING ANGIOEDEMA-INSTRUCTED PATIENT TO STOP LISINOPRIL AND START ATENOLOL. CALL IF SWELLING RETURNS. PATIENT VERBALIZED UNDERSTANDING OF PLAN. 02/19/2016 Appointment: Yasmin Jones WPtel: [phone] (30 min) Complex 02/19/2016 Patient Education: Patient Medication Summary Completed 02/19/2016 Patient Education: Obesity Completed 02/19/2016 Visit Plan: Hypertension - uncontro lled - the patient's medications have been modified as documented in the visit note. The patient has been counseled to cut back on salt in diet for a no added salt diet, low fat d iet, start an exercise program with low weight bearing exercises and higher aerobic activity for heart health. The patient is to check blood pressure readings as an outpatient and either fax, call, or email the readings to the office next week for practitioner to review. The pt is to call for acute concerns. 04/28/2014 Appointment: Follow up 04/28/2014 Patient Education: Patient Medication Summary Completed 04/28/2014 Patient Education: Hypertension Completed 04/28/2014 Appointment: Yasmin Jones WPtel: [phone] Follow up 12/27/2013 Visit Plan: Hypertension - well annamarie valdes - continue with current medications, continue with no added salt diet. Pt has been encouraged to exercise daily. The pt has been advised to call the office if there are any acute concerns about change in blood pressure readings at home. 12/28/2012 Appointment: [phone] [phone] New Patient 12/28/2012 Patient Education: Patient Medication Summary Completed 12/28/2012 Patient Education: Hypertension Completed 12/28/2012 Instructions Comment . Hypertension - unc ontrolled - the patient's medications have been modified as documented in the visit note. The patient has been counseled to cut back on salt in diet for a no added salt diet, low fat diet, start an exercise program with low weight bearing exercises and higher aerobic activity for heart health. The patient is to check blood pressure readings as an outpatient and either fax, call, or email the readings to the office next week for practitioner to review. The pt is to call for acute concerns. . Hypertension - wel l controlled - continue with current medications, continue with no added salt diet. Pt has been encouraged to exercise daily. The pt has been advised to call the office if there are any acute concerns about change in blood pressure readings at home. . Hypertension - wel l controlled - continue with current medications, continue with no added salt diet. Pt has been encouraged to exercise daily. The pt has been advised to call the office if there are any acute concerns about change in blood pressure readings at home. SUSPECT LISINOPRIL CAUSING ANGIOEDEMA-INSTRUCTED PATIENT TO STOP LISINOPRIL AND START ATENOLOL. CALL IF SWELLING RETURNS. PATIENT VERBALIZED UNDERSTANDING OF PLAN. . Hypertension - wel l controlled - continue with current medications, continue with no added salt diet. Pt has been encouraged to exercise daily. The pt has been advised to call the office if there are any acute concerns about change in blood pressure readings at home. . Hypertension - wel l controlled - continue with current medications, continue with no added salt diet. Pt has been encouraged to exercise daily. The pt has been advised to call the office if there are any acute concerns about change in blood pressure readings at home. CHECK ALLERGY PANEL CONSIDER DAILY ALLERGY PILL . Swelling of lips-d/c'd rylee inhibitor a nd symptoms persist intermittently- notices more after tomato based foods-will check basic food allergy panel as well as tomato. Instructed patient to call if symptoms persist or worsen. Patient verbalized understanding of plan.
--- OUTSIDE RECORDS SUMMARY | 2019-08-20 18:43 | XMS REPORT | CCD ---
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 Name Role Phone PP Unavailable CCM Unavailable Summary Purpose Interface Exchange Insurance Providers Payer name Policy type / Coverage type Covered alliance party ID Effective Begin Date Effective End Date Blue Cross Blue Shield [facility] e Cross/Blue Shield [id number] Unknown Unk nown Family history Brother Diagnosis [...] ntly employed 12/28/[address]: 376268609 Never smoker 12/28/2012 Alcohol history Unknown occasionally [...] Fill Instructions atenolol 25 mg tablet RxNorm: 585161 TAKE 1 TABLET BY MOUTH ONCE DAILY 08/02/2018 No Stop Date Active atenolol 25 mg tablet RxNorm: 254006 Tablet(s) TAKE ONE TABLET BY MOUTH ONCE DAILY 07/01/2017 06/25/2018 Inactive atenolol 25 mg tablet RxNorm: 228485 TAKE ONE TABLET BY MOUTH ONCE DAILY 06/02/2017 06/30/2017 In active atenolol 25 mg tablet RxNorm: 239694 TAKE ONE TABLET BY MOUTH ONCE DAILY 04/01/2017 06/01/2017 In active atenolol 25 mg tablet RxNorm: 267563 Tablet(s) TAKE ONE TABLET BY MOUTH ONCE DAILY 11/24/2016 03/23/2017 Inactive atenolol 25 mg tablet RxNorm: 337333 TAKE ONE TABLET BY MOUTH ONCE DAILY 08/25/2016 11/22/2016 In active atenolol 25 mg tablet RxNorm: 532806 1 Tablet(s) PO daily 02/19/2016 08/16/2016 Inactive lisinopril 20 mg tablet RxNorm: 451762 1 Tablet(s) PO daily 02/14/2016 02/18/2016 Inactive lisinopril 20 mg tablet RxNorm: 933414 1 Tablet(s) PO daily 02/12/2015 02/06/2016 Inactive lisinopril 10 mg tablet RxNorm: 259710 Tablet(s) TAKE ONE TABLET BY MOUTH ONCE DAILY 02/06/2015 02/11/2015 Inactive lisinopril 20 mg tablet RxNorm: 413809 1 Tablet(s) PO daily 04/28/2014 01/22/2015 Inactive lisinopril 10 mg tablet RxNorm: 246254 TAKE ONE TABLET BY MOUTH ONCE DAILY 04/27/2014 01/20/2015 In active lisinopril 10 mg tablet RxNorm: 218529 1 Tablet(s) PO daily 06/28/2013 03/24/2014 Inactive lisinopril 10 mg tablet RxNorm: 929205 1 Tablet(s) PO daily 12/28/2012 06/25/2013 Inactive lisinopril 10 mg tablet RxNorm: 516849 1 Tablet(s) PO daily No Start Date 12/27/2012 Inactive Medication Administered No Medication Administered data Immunizations Vaccine Codes Date Status Influenza CVX: 141 12/16 completed Tetanus/Diptheria CVX: 113 02/15/1991 completed Assessments Condition Codes Effectiv e [...] 32.6 pg 08/20/2018 Cbc With Differential Ord2 [place]% 15.3 % 08/20/2018 Cbc With Differential Ord2 [...] 1.86 K/ul 08/20/2018 Cbc With Differential Ord2 [place] ABS# 1.0 K/ul 08/20/2018 Cbc With Differential Ord2 Eos ABS# 0.1 K/ul 08/20/2018 Cbc With Differential Ord2 Baso ABS# 0.0 K/ul 08/20/2018 [place] 33607 TOMATO <0.10 kU/L 05/08/2016 [place] 11619 ALLERG EN INTERPRETATION 05/08/2016 Allergen Profile Food-Basic 81477 IMMUNOGLOBULIN E . 05/08/2016 Allergen Profile Food-Basic 12086 IMMUNOGLOBULIN E 68 IU/mL 05/08/2016 Allergen Profile Food-Basic 58499 FOOD . 05/08/2016 Allergen Profile Food-Basic 76394 COD <0.10 kU/L 05/08/2016 Allergen Profile Food-Basic 82642 CORN <0.10 kU/L 05/08/2016 Allergen Profile Food-Basic 90550 EGG WHITE 0.44 kU/L 05/08/2016 Allergen Profile Food-Basic 99344 MILK 0.16 kU/L 05/08/2016 Allergen Profile Food-Basic 06123 PEANUT 0.19 kU/L 05/08/2016 Allergen Profile Food-Basic 59131 SHRIMP <0.10 kU/L 05/08/2016 Allergen Profile Food-Basic 22176 SOYBEAN <0.10 kU/L 05/08/2016 Allergen Profile Food-Basic 31303 WALNUT <0.10 kU/L 05/08/2016 Allergen Profile Food-Basic 02651 WHEAT <0.10 kU/L 05/08/2016 Allergen Profile Food-Basic 81362 SESAME SEED <0.10 kU/L 05/08/2016 Allergen Profile Food-Basic 71809 ALLERGEN INTERPRETATION 05/08/2016 Allergen Profile Food-Basic 94305 Clam <0.10 kU/L 05/08/2016 Allergen Profile Food-Basic 25157 SCALLOP <0.10 kU/L 05/08/2016 Cbc With Differential [...] 32.8 pg 05/06/2016 Cbc With Differential Ord2 [place]% 16.3 % 05/06/2016 Cbc With Differential Ord2 [...] 1.64 K/ul 05/06/2016 Cbc With Differential Ord2 [place] ABS# 1.0 K/ul 05/06/2016 Cbc With Differential Ord2 Eos ABS# 0.1 K/ul 05/06/2016 Cbc With Differential Ord2 Baso ABS# 0.0 K/ul 05/06/2016 Comp Metabolic Jdg552 NA 138 mEq/L 05/06/2016 Comp Metabolic Jms090 K 4.1 mEq/L 05/06/2016 Comp Metabolic Yrc548 CL 101 mEq/L 05/06/2016 Comp Metabolic Eam445 CO2 31.0 mEq/L 05/06/2016 Comp Metabolic Tji149 AN ION GAP 10 05/06/2016 Comp Metabolic Djb877 GL UCOSE 83 mg/dL 05/06/2016 Comp Metabolic Kbv303 Cr eat 0.9 mg/dL 05/06/2016 Comp Metabolic Jxf006 eG FR 101 ml/min/1.73m2 04/17 Comp Metabolic Mxa447 BUN 15 mg/dL 05/06/2016 Comp Metabolic Geo482 B/ C Ratio 17.0 Ratio 05/06/2016 Comp Metabolic Jrb127 CA LCIUM 9.8 mg/dL 05/06/2016 Comp Metabolic Pwg120 AL K PHOS 46 U/L 05/06/2016 Comp Metabolic Qpb527 T(SGOT) 19 U/L 05/06/2016 Comp Metabolic Bje799 AL T(SGPT) 26 U/L 05/06/2016 Comp Metabolic Esr277 BI LI T 0.9 mg/dL 05/06/2016 Comp Metabolic Sbr121 AL BUMIN 4.5 g/dL 05/06/2016 Comp Metabolic Wxh697 TP RO 7.1 g/dL 05/06/2016 Comp Metabolic Eub270 GL OB 2.6 g/dL 05/06/2016 Comp Metabolic Mvl209 A/ G Ratio 1.7 Ratio 05/06/2016 Comp Metabolic Uuh103 Os mo 276 mOsmo 05/06/2016 Comp Metabolic Jek468 NA 134 mEq/L 12/15/2014 Comp Metabolic Lmc603 K 4.4 mEq/L 12/15/2014 Comp Metabolic Nxv222 CL 100 mEq/L 12/15/2014 Comp Metabolic Fwo686 CO2 29.0 mEq/L 12/15/2014 Comp Metabolic Bmu715 AN ION GAP 9 12/15/2014 Comp Metabolic Sbi284 GL UCOSE 84 mg/dL 12/15/2014 Comp Metabolic Eww947 Cr eat 1.0 mg/dL 12/15/2014 Comp Metabolic Qbx527 eG FR 93 ml/min/1.73m2 12/15 Comp Metabolic Cky320 BUN 16 mg/dL 12/15/2014 Comp Metabolic Szg659 B/ C Ratio 16.8 Ratio 12/15/2014 Comp Metabolic Ahn353 CA LCIUM 9.5 mg/dL 12/15/2014 Comp Metabolic Dfs479 AL K PHOS 50 U/L 12/15/2014 Comp Metabolic Tmv524 T(SGOT) 20 U/L 12/15/2014 Comp Metabolic Nnm055 AL T(SGPT) 30 U/L 12/15/2014 Comp Metabolic Nme018 BI LI T 0.9 mg/dL 12/15/2014 Comp Metabolic Mxh140 AL BUMIN 4.6 g/dL 12/15/2014 Comp Metabolic Ozw536 TP RO 7.2 g/dL 12/15/2014 Comp Metabolic Eyj524 GL OB 2.7 g/dL 12/15/2014 Comp Metabolic Imz472 A/ G Ratio 1.7 Ratio 12/15/2014 Comp Metabolic Lcf618 Os mo 269 mOsmo 12/15/2014 Cbc With [...] developed 08/06/2018 None Full Exam - General 1995 Constitutional general appearance Overall: in no acute distress 08/06/2018 None Full Exam - General 1995 Constitutional general appearance Overall: well nourished 08/06/2018 None Full Exam - General 1995 Eyes conjunctiva/eyelids Overall: conjunctiva clear 08/06/2018 None Full Exam - General 1995 Eyes conjunctiva/eyelids Overall: cornea clear 08/06/2018 None Full Exam - General 1994 Eyes conjunctiva/eyelids Overall: eyelids normal 08/06/2018 None Full Exam - General 1995 Ears/Nose/Throat lips/teeth/gingiva Overall: benign lips 08/06/2018 None Full Exam - General 1995 Ears/Nose/Throat oral cavity/pharynx/larynx Overall: oral mucosa clear 08/06/2018 None Full Exam - General 1995 Ears/Nose/Throat oral cavity/pharynx/larynx Overall: oropharyngeal mucosa clear [...] 1: 132/80 Code: 8480-6 BMI: 29.1 Code: 84171-5 Heart Rate 1: 75 bpm Height: 5'11" SpO2: 97% Weight: 209 lbs 06/11/2017 Blood Pressure 1: 122/84 Code: 8480-6 BMI: 29.0 Code: 28095-5 Heart Rate 1: 80 bpm Height: 5'11" SpO2: 97% Weight: 208 lbs 05/06/2016 Blood Pressure 1: 124/72 Code: 8480-6 BMI: 28.6 Code: 71143-7 Heart Rate 1: 81 bpm Height: 5'11" SpO2: 96% Weight: 205 lbs 02/19/2016 Blood Pressure 1: 134/74 Code: 8480-6 BMI: 27.9 Code: 14507-5 Heart Rate 1: 106 bpm Height: 5'11" SpO2: 97% Weight: 200 lbs 04/28/2014 Blood Pressure 1: 150/100 Code: 8480-6 BMI: 26.8 Code: 27316-1 Heart Rate 1: 88 bpm Height: 5'11" Weight: 192 lbs 12/28/2012 Blood Pressure 1: 122/88 Code: 8480-6 BMI: 27.6 Code: 98486-2 Heart Rate 1: 72 bpm Height: 5'11" [...] Encounters Encounter Performer Loca tion Codes Date EST. PATIENT, LEVEL III Diagnosis: Essential (primary) hypertension[ICD10: I10] Chel Friend MD, [facility] CPT-4: 15750 08/06/201850241 EST. PATIENT, LEVEL III Diagnosis: Essential (primary) hypertension[ICD10: I10] [facility] CPT-4: 60526 06/11/2017 ([id number]) 10138 EST. P ATIENT, LEVEL III Diagnosis: Angioneurotic edema, initial encounter[ICD10: T78.3XXA] Diagnosis: Essential (primary) hypertension[ICD10: I10] [facility] CPT-4: 93158 05/06/2016 ([id number]) 95258 EST. P ATIENT, LEVEL III Diagnosis: Essential (primary) hypertension[ICD10: I10] [facility] CPT-4: 73801 02/19/2016 ([id number]) 87400 EST. P ATIENT, LEVEL III Diagnosis: ESSENTIAL HYPERTENSION[ICD9: 401.9] [facility] CPT-4: 15091 04/28/2014 ([id number]) OFFICE/OUTPA TIENT VISIT NEW Diagnosis: ESSENTIAL HYPERTENSION[SNOMED: 23061301] Yasmin Friend MD, [facility] CPT-4: 89020 12/28/2012 Plan of Care Planned Activity Notes [...] at home. 08/06/2018 Appointment: Chel Terrell WPtel: [address] [place], [place] [id number] (30 min) Complex 08/06/2018 Patient Education: Patient Medication Summary Completed 08/06/2018 Visit Plan: Hypertension - well con trolled - continue with current medications, continue with no added salt diet. Pt has been encouraged to exercise daily. The pt has been advised to call the office if there are any acute concerns about change in blood pressure readings at home. 06/11/2017 Appointment: Chel Terrell [facility]el[phone] (15 min) Moderate 06/11/2017 Patient Education: Patient Medication Summary Completed 06/11/2017 Visit Plan: Swelling of lips-d/c'd rylee inhibitor and symptoms persist intermittently-notices more after tomato based foods-will check basic food allergy panel as well as tomato. Instructed patient to call if symptoms persist or worsen. Patient verbalized understanding of plan. 05/06/2016 Appointment: Yasmin Jones WPtel: [phone] [phone] (15 min) Moderate 05/06/2016 Patient Education: [...] OF PLAN. 02/19/2016 Appointment: Yasmin Jones WPtel: [phone] [phone] (30 min) Complex 02/19/2016 Patient Education: [...] Hypertension Completed 04/28/2014 Appointment: Yasmin Jones WPtel: [phone] [phone] Follow up 12/27/2013 Visit Plan: Hypertension - well con trolled - continue with current medications, continue with no added salt diet. Pt has been encouraged to exercise daily. The pt has been advised to call the office if there are any acute concerns about change in blood pressure readings at home. 12/28/2012 Appointment: JonesYasmin [facility]Ptel[facility] [phone] [facility] [phone] [place] New Patient 12/28/2012 Patient Education: Patient Medication [...]
--- OUTSIDE RECORDS SUMMARY | 2019-08-20 18:43 | XMS REPORT | CCD ---
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 Role Phone PP Unavailable CCM Unavailable Summary Purpose Interface Exchange Insurance Providers Payer name Policy type / Coverage type Covered constitution party ID Effective Begin Date Effective End Date Blue Cross Blue Shield [facility] e Cross/Blue Shield [id number] Unknown Unk nown Family history Brother Diagnosis [...] ntly employed 12/28/[address]: [id number] Never smoker 12/28/2012 Alcohol history Unknown occasionally [...] Fill Instructions atenolol 25 mg tablet RxNorm: 296726 TAKE 1 TABLET BY MOUTH ONCE DAILY 08/02/2018 No Stop Date Active atenolol 25 mg tablet RxNorm: 612548 Tablet(s) TAKE ONE TABLET BY MOUTH ONCE DAILY 07/01/2017 06/25/2018 Inactive atenolol 25 mg tablet RxNorm: 482530 TAKE ONE TABLET BY MOUTH ONCE DAILY 06/02/2017 06/30/2017 In active atenolol 25 mg tablet RxNorm: 428653 TAKE ONE TABLET BY MOUTH ONCE DAILY 04/01/2017 06/01/2017 In active atenolol 25 mg tablet RxNorm: 533700 Tablet(s) TAKE ONE TABLET BY MOUTH ONCE DAILY 11/24/2016 03/23/2017 Inactive atenolol 25 mg tablet RxNorm: 270841 TAKE ONE TABLET BY MOUTH ONCE DAILY 08/25/2016 11/22/2016 In active atenolol 25 mg tablet RxNorm: 176042 1 Tablet(s) PO daily 02/19/2016 08/16/2016 Inactive lisinopril 20 mg tablet RxNorm: 775980 1 Tablet(s) PO daily 02/14/2016 02/18/2016 Inactive lisinopril 20 mg tablet RxNorm: 406596 1 Tablet(s) PO daily 02/12/2015 02/06/2016 Inactive lisinopril 10 mg tablet RxNorm: 675802 Tablet(s) TAKE ONE TABLET BY MOUTH ONCE DAILY 02/06/2015 02/11/2015 Inactive lisinopril 20 mg tablet RxNorm: 853006 1 Tablet(s) PO daily 04/28/2014 01/22/2015 Inactive lisinopril 10 mg tablet RxNorm: 186331 TAKE ONE TABLET BY MOUTH ONCE DAILY 04/27/2014 01/20/2015 In active lisinopril 10 mg tablet RxNorm: 369728 1 Tablet(s) PO daily 06/28/2013 03/24/2014 Inactive lisinopril 10 mg tablet RxNorm: 094595 1 Tablet(s) PO daily 12/28/2012 06/25/2013 Inactive lisinopril 10 mg tablet RxNorm: 479949 1 Tablet(s) PO daily No Start Date [...] Observation Code Item Item Code Result Date [place] 80250 TOMATO <0.10 kU/L 05/08/2016 [place] 21882 ALLERG EN INTERPRETATION 05/08/2016 Allergen Profile Food-Basic 52467 IMMUNOGLOBULIN E . 05/08/2016 Allergen Profile Food-Basic 41232 IMMUNOGLOBULIN E 68 IU/mL 05/08/2016 Allergen Profile Food-Basic 21539 FOOD . 05/08/2016 Allergen Profile Food-Basic 29606 COD <0.10 kU/L 05/08/2016 Allergen Profile Food-Basic 95592 CORN <0.10 kU/L 05/08/2016 Allergen Profile Food-Basic 69002 EGG WHITE 0.44 kU/L 05/08/2016 Allergen Profile Food-Basic 69700 MILK 0.16 kU/L 05/08/2016 Allergen Profile Food-Basic 54477 PEANUT 0.19 kU/L 05/08/2016 Allergen Profile Food-Basic 19874 SHRIMP <0.10 kU/L 05/08/2016 Allergen Profile Food-Basic 23414 SOYBEAN <0.10 kU/L 05/08/2016 Allergen Profile Food-Basic 26176 WALNUT <0.10 kU/L 05/08/2016 Allergen Profile Food-Basic 29640 WHEAT <0.10 kU/L 05/08/2016 Allergen Profile Food-Basic 19687 SESAME SEED <0.10 kU/L 05/08/2016 Allergen Profile Food-Basic 41882 ALLERGEN INTERPRETATION 05/08/2016 Allergen Profile Food-Basic 30250 Clam <0.10 kU/L 05/08/2016 Allergen Profile Food-Basic 09283 SCALLOP <0.10 kU/L 05/08/2016 Cbc With Differential [...] 32.8 pg 05/06/2016 Cbc With Differential Ord2 [place]% 16.3 % 05/06/2016 Cbc With Differential Ord2 [...] 1.64 K/ul 05/06/2016 Cbc With Differential Ord2 [place] ABS# 1.0 K/ul 05/06/2016 Cbc With Differential Ord2 Eos ABS# 0.1 K/ul 05/06/2016 Cbc With Differential Ord2 Baso ABS# 0.0 K/ul 05/06/2016 Comp Metabolic Jbf371 NA 138 mEq/L 05/06/2016 Comp Metabolic Osz792 K 4.1 mEq/L 05/06/2016 Comp Metabolic Dde196 CL 101 mEq/L 05/06/2016 Comp Metabolic Cvy713 CO2 31.0 mEq/L 05/06/2016 Comp Metabolic Kng192 AN ION GAP 10 05/06/2016 Comp Metabolic Fzi958 GL UCOSE 83 mg/dL 05/06/2016 Comp Metabolic Bnh131 Cr eat 0.9 mg/dL 05/06/2016 Comp Metabolic Shu232 eG FR 101 ml/min/1.73m2 04/17 Comp Metabolic Kfb123 BUN 15 mg/dL 05/06/2016 Comp Metabolic Dnc314 B/ C Ratio 17.0 Ratio 05/06/2016 Comp Metabolic Nxd158 CA LCIUM 9.8 mg/dL 05/06/2016 Comp Metabolic Pgn747 AL K PHOS 46 U/L 05/06/2016 Comp Metabolic Rad305 T(SGOT) 19 U/L 05/06/2016 Comp Metabolic Ixk840 AL T(SGPT) 26 U/L 05/06/2016 Comp Metabolic Nwe940 BI LI T 0.9 mg/dL 05/06/2016 Comp Metabolic Lof008 AL BUMIN 4.5 g/dL 05/06/2016 Comp Metabolic Xjl582 TP RO 7.1 g/dL 05/06/2016 Comp Metabolic Dze685 GL OB 2.6 g/dL 05/06/2016 Comp Metabolic Vye638 A/ G Ratio 1.7 Ratio 05/06/2016 Comp Metabolic Roy810 Os mo 276 mOsmo 05/06/2016 Comp Metabolic Zbw083 NA 134 mEq/L 12/15/2014 Comp Metabolic Wbh071 K 4.4 mEq/L 12/15/2014 Comp Metabolic Fpb181 CL 100 mEq/L 12/15/2014 Comp Metabolic Ucz352 CO2 29.0 mEq/L 12/15/2014 Comp Metabolic Awf152 AN ION GAP 9 12/15/2014 Comp Metabolic Lqq286 GL UCOSE 84 mg/dL 12/15/2014 Comp Metabolic Wus111 Cr eat 1.0 mg/dL 12/15/2014 Comp Metabolic Rql162 eG FR 93 ml/min/1.73m2 12/15 Comp Metabolic Dim861 BUN 16 mg/dL 12/15/2014 Comp Metabolic Zws392 B/ C Ratio 16.8 Ratio 12/15/2014 Comp Metabolic Zxy509 CA LCIUM 9.5 mg/dL 12/15/2014 Comp Metabolic Gpj735 AL K PHOS 50 U/L 12/15/2014 Comp Metabolic Gut737 T(SGOT) 20 U/L 12/15/2014 Comp Metabolic Fjj243 AL T(SGPT) 30 U/L 12/15/2014 Comp Metabolic Dwg075 BI LI T 0.9 mg/dL 12/15/2014 Comp Metabolic Aqf727 AL BUMIN 4.6 g/dL 12/15/2014 Comp Metabolic Atr850 TP RO 7.2 g/dL 12/15/2014 Comp Metabolic Qjo881 GL OB 2.7 g/dL 12/15/2014 Comp Metabolic Igg943 A/ G Ratio 1.7 Ratio 12/15/2014 Comp Metabolic Svy106 Os mo 269 mOsmo 12/15/2014 Cbc With [...] clear 12/28/2012 None Full Exam - General 1995 Ears/Nose/Throat otoscopic exam Overall: external auditory canals clear 12/28/2012 None Full Exam - General 1995 Ears/Nose/Throat oral cavity/pharynx/larynx Overall: oropharyngeal mucosa clear 12/28/2012 None Full Exam - General 1994 Ears/Nose/Throat oral cavity/pharynx/larynx Overall: no masses 12/28/2012 None Full Exam - General 1995 Ears/Nose/Throat [...] 1: 132/80 Code: 8480-6 BMI: 29.1 Code: 26723-4 Heart Rate 1: 75 bpm Height: 5'11" SpO2: 97% Weight: 209 lbs 06/11/2017 Blood Pressure 1: 122/84 Code: 8480-6 BMI: 29.0 Code: 45929-3 Heart Rate 1: 80 bpm Height: 5'11" SpO2: 97% Weight: 208 lbs 05/06/2016 Blood Pressure 1: 124/72 Code: 8480-6 BMI: 28.6 Code: 20858-8 Heart Rate 1: 81 bpm Height: 5'11" SpO2: 96% Weight: 205 lbs 02/19/2016 Blood Pressure 1: 134/74 Code: 8480-6 BMI: 27.9 Code: 26476-8 Heart Rate 1: 106 bpm Height: 5'11" SpO2: 97% Weight: 200 lbs 04/28/2014 Blood Pressure 1: 150/100 Code: 8480-6 BMI: 26.8 Code: 77573-2 Heart Rate 1: 88 bpm Height: 5'11" Weight: 192 lbs 12/28/2012 Blood Pressure 1: 122/88 Code: 8480-6 BMI: 27.6 Code: 40964-5 Heart Rate 1: 72 bpm Height: 5'11" [...] Essential (primary) hypertension[ICD10: I10] Chel Friend MD, [facility] CPT-4: 15544 08/06/2018 55489 EST. PATIENT, LEVEL III Diagnosis: Essential (primary) hypertension[ICD10: I10] Chel Friend MD, [facility] CPT-4: 22788 06/11/2017 ([id number]) 77757 EST. P ATIENT, LEVEL III Diagnosis: Angioneurotic edema, initial encounter[ICD10: T78.3XXA] Diagnosis: Essential (primary) hypertension[ICD10: I10] Yasmin Friend MD, [facility] CPT-4: 85659 05/06/2016 ([id number]) 03063 EST. P ATIENT, LEVEL III Diagnosis: Essential (primary) hypertension[ICD10: I10] Yasmin Friedn MD, [facility] CPT-4: 87610 02/19/2016 ([id number]) 10355 EST. P ATIENT, LEVEL III Diagnosis: ESSENTIAL HYPERTENSION[ICD9: 401.9] Yasmin Friend MD, [facility] CPT-4: 65237 04/28/2014 ([id number]) OFFICE/OUTPA TIENT VISIT NEW Diagnosis: ESSENTIAL HYPERTENSION[SNOMED: 30625977] Yasmin Friend MD, [facility] CPT-4: 10665 12/28/2012 Plan of Care Planned Activity Notes C odes Status Date Patient Education: Patient Medication Summary Completed 08/20/2018 Care Plan: Cbc With Differential Pending 08/20/2018 Visit Plan: Hypertension - well con trolled - continue with current medications, continue with no added salt diet. Pt has been encouraged to exercise daily. The pt has been advised to call the office if there are any acute concerns about change in blood pressure readings at home. 08/06/2018 Appointment: Chel Terrell WPtel: [address] [place], [place] [phone] (30 min) Complex 08/06/2018 Patient Education: Patient [...] at home. 06/11/2017 Appointment: Chel Terrell WPtel: [address] [place], [place] [phone] (15 min) Moderate 06/11/2017 Patient Education: Patient Medication Summary Completed 06/11/2017 Visit Plan: Swelling of lips-d/c'd rylee inhibitor and symptoms persist intermittently-notices more after tomato based foods-will check basic food allergy panel as well as tomato. Instructed patient to call if symptoms persist or worsen. Patient verbalized understanding of plan. 05/06/2016 Appointment: Yasmin Jones WPtel: [phone] (15 min) Moderate 05/06/2016 Patient Education: [...] OF PLAN. 02/19/2016 Appointment: Yasmin Jones WPtel: [phone] (30 min) Complex 02/19/2016 Patient Education: [...] Completed 04/28/2014 [facility]ment: [facility] [phone] [phone] Follow up 12/27/2013 Visit Plan: Hypertension - well con trolled - continue with current medications, continue with no added salt diet. Pt has been encouraged to exercise daily. The pt has been advised to call the office if there are any acute concerns about change in blood pressure readings at home. 12/28/2012 Appointment: [facility]el[facility] [phone] [phone] New Patient 12/28/2012 Patient Education: [...]
--- OUTSIDE RECORDS SUMMARY | 2019-08-20 18:44 | XMS REPORT | CCD ---
Author Author Ankit Jones Organization Lashell Friend MD, [facility] Address [address] [place] [address] Phone Care Team Providers Care Vault Attendant Name Role Phone PP Unavailable CCM Unavailable Summary Purpose Interface Exchange Insurance Providers Payer name Policy type / Coverage type Covered constitution party ID Effective Begin Date Effective End Date Blue Cross Blue Shield [facility] e Cross/Blue Shield [id number] Unknown Unk nown Family history Brother Diagnosis [...] ntly employed 12/28/[address]: [id number] Never smoker 12/28/2012 Alcohol history Unknown occasionally [...] Codes Condition Status Onset Date Resolved Date Essential (primary) hypertension ICD-9: 401.1 ICD-10: I10 Active 08/06/2018 Unknown Essential (primary) hypertension ICD-9: 401.9 ICD-10: I10 Active 02/18/2016 Unknown Angioneurotic edema, initial encounter ICD-9: 995.1 ICD-10: T78.3XXA Active 05/06/2016 Unknown ESSENTIAL HYPERTENSION ICD-9: 401.9 Active 04/28/2014 Unknown Hypertension Unknown Active 12/28/2012 Unknow n Problems Condition Codes Effectiv e Dates Condition Status Essential (primary) hypertension ICD-9: 401.1 ICD-10: I10 08/06/2018 Active Essential (primary) hypertension ICD-9: 401.9 ICD-10: I10 02/18/2016 Active Angioneurotic edema, initial encounter ICD-9: 995.1 ICD-10: T78.3XXA 05/06/2016 Active ESSENTIAL HYPERTENSION ICD-9: 401.9 04/28/2014 Active Hypertension Unknown 12/28/2012 Active Medications Medication Codes Instruc tions Start Date Stop Date Sta tus Fill Instructions atenolol 25 mg tablet RxNorm: 042215 TAKE 1 TABLET BY MOUTH ONCE DAILY 08/02/2018 No Stop Date Active atenolol 25 mg tablet RxNorm: 441794 Tablet(s) TAKE ONE TABLET BY MOUTH ONCE DAILY 07/01/2017 06/25/2018 Inactive atenolol 25 mg tablet RxNorm: 677745 TAKE ONE TABLET BY MOUTH ONCE DAILY 06/02/2017 06/30/2017 In active atenolol 25 mg tablet RxNorm: 356518 TAKE ONE TABLET BY MOUTH ONCE DAILY 04/01/2017 06/01/2017 In active atenolol 25 mg tablet RxNorm: 560455 Tablet(s) TAKE ONE TABLET BY MOUTH ONCE DAILY 11/24/2016 03/23/2017 Inactive atenolol 25 mg tablet RxNorm: 524504 TAKE ONE TABLET BY MOUTH ONCE DAILY 08/25/2016 11/22/2016 In active atenolol 25 mg tablet RxNorm: 686690 1 Tablet(s) PO daily 02/19/2016 08/16/2016 Inactive lisinopril 20 mg tablet RxNorm: 806669 1 Tablet(s) PO daily 02/14/2016 02/18/2016 Inactive lisinopril 20 mg tablet RxNorm: 341554 1 Tablet(s) PO daily 02/12/2015 02/06/2016 Inactive lisinopril 10 mg tablet RxNorm: 287005 Tablet(s) TAKE ONE TABLET BY MOUTH ONCE DAILY 02/06/2015 02/11/2015 Inactive lisinopril 20 mg tablet RxNorm: 591128 1 Tablet(s) PO daily 04/28/2014 01/22/2015 Inactive lisinopril 10 mg tablet RxNorm: 840727 TAKE ONE TABLET BY MOUTH ONCE DAILY 04/27/2014 01/20/2015 In active lisinopril 10 mg tablet RxNorm: 248012 1 Tablet(s) PO daily 06/28/2013 03/24/2014 Inactive lisinopril 10 mg tablet RxNorm: 711729 1 Tablet(s) PO daily 12/28/2012 06/25/2013 Inactive lisinopril 10 mg tablet RxNorm: 451151 1 Tablet(s) PO daily No Start Date 12/27/2012 Inactive Medication Administered No Medication Administered data Immunizations Vaccine Codes Date Status Influenza CVX: 141 12/16 completed Tetanus/Diptheria CVX: 113 02/15/1991 completed Assessments Condition Codes Effectiv e Dates Essential (primary) hypertension ICD -10: I10 ICD-9: [...] Item Item Code Result Date Rast Tomato 44536 TOMATO <0.10 kU/L 05/08/2016 Rast [place]ato 65668 ALLERG EN INTERPRETATION 05/08/2016 Allergen Profile Food-Basic 89705 IMMUNOGLOBULIN E . 05/08/2016 Allergen Profile Food-Basic 34204 IMMUNOGLOBULIN E 68 IU/mL 05/08/2016 Allergen Profile Food-Basic 96935 FOOD . 05/08/2016 Allergen Profile Food-Basic 96542 COD <0.10 kU/L 05/08/2016 Allergen Profile Food-Basic 05067 CORN <0.10 kU/L 05/08/2016 Allergen Profile Food-Basic 89697 EGG WHITE 0.44 kU/L 05/08/2016 Allergen Profile Food-Basic 77868 MILK 0.16 kU/L 05/08/2016 Allergen Profile Food-Basic 73519 PEANUT 0.19 kU/L 05/08/2016 Allergen Profile Food-Basic 83060 SHRIMP <0.10 kU/L 05/08/2016 Allergen Profile Food-Basic 68254 SOYBEAN <0.10 kU/L 05/08/2016 Allergen Profile Food-Basic 33065 WALNUT <0.10 kU/L 05/08/2016 Allergen Profile Food-Basic 62246 WHEAT <0.10 kU/L 05/08/2016 Allergen Profile Food-Basic 55964 SESAME SEED <0.10 kU/L 05/08/2016 Allergen Profile Food-Basic 88752 ALLERGEN INTERPRETATION 05/08/2016 Allergen Profile Food-Basic 72349 Clam <0.10 kU/L 05/08/2016 Allergen Profile Food-Basic 10104 SCALLOP <0.10 kU/L 05/08/2016 Cbc With Differential [...] 32.8 pg 05/06/2016 Cbc With Differential Ord2 [place]% 16.3 % 05/06/2016 Cbc With Differential Ord2 [...] 1.64 K/ul 05/06/2016 Cbc With Differential Ord2 [place] ABS# 1.0 K/ul 05/06/2016 Cbc With Differential Ord2 Eos ABS# 0.1 K/ul 05/06/2016 Cbc With Differential Ord2 Baso ABS# 0.0 K/ul 05/06/2016 Comp Metabolic Ydd897 NA 138 mEq/L 05/06/2016 Comp Metabolic Kgx764 K 4.1 mEq/L 05/06/2016 Comp Metabolic Ivd803 CL 101 mEq/L 05/06/2016 Comp Metabolic Jgv890 CO2 31.0 mEq/L 05/06/2016 Comp Metabolic Nei204 AN ION GAP 10 05/06/2016 Comp Metabolic Aje708 GL UCOSE 83 mg/dL 05/06/2016 Comp Metabolic Yna883 Cr eat 0.9 mg/dL 05/06/2016 Comp Metabolic Dks147 eG FR 101 ml/min/1.73m2 04/17 Comp Metabolic Wcu700 BUN 15 mg/dL 05/06/2016 Comp Metabolic Zpv244 B/ C Ratio 17.0 Ratio 05/06/2016 Comp Metabolic Mpv442 CA LCIUM 9.8 mg/dL 05/06/2016 Comp Metabolic Zqp964 AL K PHOS 46 U/L 05/06/2016 Comp Metabolic Pzu616 T(SGOT) 19 U/L 05/06/2016 Comp Metabolic Xml255 AL T(SGPT) 26 U/L 05/06/2016 Comp Metabolic Mkh130 BI LI T 0.9 mg/dL 05/06/2016 Comp Metabolic Idt943 AL BUMIN 4.5 g/dL 05/06/2016 Comp Metabolic Fqh435 TP RO 7.1 g/dL 05/06/2016 Comp Metabolic Mgp787 GL OB 2.6 g/dL 05/06/2016 Comp Metabolic Pul200 A/ G Ratio 1.7 Ratio 05/06/2016 Comp Metabolic Aso813 Os mo 276 mOsmo 05/06/2016 Comp Metabolic Jay756 NA 134 mEq/L 12/15/2014 Comp Metabolic Yvf313 K 4.4 mEq/L 12/15/2014 Comp Metabolic Ewt506 CL 100 mEq/L 12/15/2014 Comp Metabolic Qeb209 CO2 29.0 mEq/L 12/15/2014 Comp Metabolic Pyw175 AN ION GAP 9 12/15/2014 Comp Metabolic Gzy845 GL UCOSE 84 mg/dL 12/15/2014 Comp Metabolic Xun811 Cr eat 1.0 mg/dL 12/15/2014 Comp Metabolic Ekv007 eG FR 93 ml/min/1.73m2 12/15 Comp Metabolic Mab546 BUN 16 mg/dL 12/15/2014 Comp Metabolic Abb552 B/ C Ratio 16.8 Ratio 12/15/2014 Comp Metabolic Cbf235 CA LCIUM 9.5 mg/dL 12/15/2014 Comp Metabolic Crg310 AL K PHOS 50 U/L 12/15/2014 Comp Metabolic Kao887 T(SGOT) 20 U/L 12/15/2014 Comp Metabolic Fzz374 AL T(SGPT) 30 U/L 12/15/2014 Comp Metabolic Hdg165 BI LI T 0.9 mg/dL 12/15/2014 Comp Metabolic Nwk503 AL BUMIN 4.6 g/dL 12/15/2014 Comp Metabolic Hei992 TP RO 7.2 g/dL 12/15/2014 Comp Metabolic Tao769 GL OB 2.7 g/dL 12/15/2014 Comp Metabolic Reo017 A/ G Ratio 1.7 Ratio 12/15/2014 Comp Metabolic Ths638 Os mo 269 mOsmo 12/15/2014 Cbc With [...] - General 1995 Ears/Nose/Throat oral cavity/pharynx/larynx Overall: no masses 12/28/2012 [...] 1: 132/80 Code: 8480-6 BMI: 29.1 Code: 26081-5 Heart Rate 1: 75 bpm Height: 5'11" SpO2: 97% Weight: 209 lbs 06/11/2017 Blood Pressure 1: 122/84 Code: 8480-6 BMI: 29.0 Code: 02607-2 Heart Rate 1: 80 bpm Height: 5'11" SpO2: 97% Weight: 208 lbs 05/06/2016 Blood Pressure 1: 124/72 Code: 8480-6 BMI: 28.6 Code: 64268-3 Heart Rate 1: 81 bpm Height: 5'11" SpO2: 96% Weight: 205 lbs 02/19/2016 Blood Pressure 1: 134/74 Code: 8480-6 BMI: 27.9 Code: 32958-4 Heart Rate 1: 106 bpm Height: 5'11" SpO2: 97% Weight: 200 lbs 04/28/2014 Blood Pressure 1: 150/100 Code: 8480-6 BMI: 26.8 Code: 59200-2 Heart Rate 1: 88 bpm Height: 5'11" Weight: 192 lbs 12/28/2012 Blood Pressure 1: 122/88 Code: 8480-6 BMI: 27.6 Code: 20402-4 Heart Rate 1: 72 bpm Height: 5'11" [...] Essential (primary) hypertension[ICD10: I10] Chel Friend MD, [facility] CPT-4: 29416 08/06/2018 [id number] EST. PATIENT, LEVEL III Diagnosis: Essential (primary) hypertension[ICD10: I10] Chel Friend MD, [facility] CPT-4: 38287 06/11/2017 ([id number]) 73207 EST. P ATIENT, LEVEL III Diagnosis: Angioneurotic edema, initial encounter[ICD10: T78.3XXA] Diagnosis: Essential (primary) hypertension[ICD10: I10] Yasmin Friend MD, [facility] CPT-4: 47570 05/06/2016 ([id number]) 42465 EST. P ATIENT, LEVEL III Diagnosis: Essential (primary) hypertension[ICD10: I10] Yasmin Friend MD, [facility] CPT-4: 79768 02/19/2016 ([id number]) 79214 EST. P ATIENT, LEVEL III Diagnosis: ESSENTIAL HYPERTENSION[ICD9: 401.9] [facility] CPT-4: 92313 04/28/2014 ([id number]) OFFICE/OUTPA TIENT VISIT NEW Diagnosis: ESSENTIAL HYPERTENSION[SNOMED: 17179155] Yasmin Friend MD, [facility] CPT-4: 27040 12/28/2012 Plan of Care Planned Activity Notes C odes Status Date Visit Plan: Hypertension - well con trolled - continue with current medications, continue with no added salt diet. Pt has been encouraged to exercise daily. The pt has been advised to call the office if there are any acute concerns about change in blood pressure readings at home. 08/06/2018 Appointment: Chel Terrell WPtel: [address] [place], [place] [phone] (30 min) [facility] 08/06/2018 Patient Education: Patient Medication Summary Completed 08/06/2018 Visit Plan: Hypertension - well con trolled - continue with current medications, continue with no added salt diet. Pt has been encouraged to exercise daily. The pt has been advised to call the office if there are any acute concerns about change in blood pressure readings at home. 06/11/2017 Appointment: Chel Terrell WPtel: [phone] [phone] (15 min) Moderate 06/11/2017 Patient Education: Patient Medication Summary Completed 06/11/2017 Visit Plan: Swelling of lips-d/c'd rylee inhibitor and symptoms persist intermittently-notices more after tomato based foods-will check basic food allergy panel as well as tomato. Instructed patient to call if symptoms persist or worsen. Patient verbalized understanding of plan. 05/06/2016 Appointment: Yasmin Jones WPtel: [phone] [phone] (15 min) Moderate 05/06/2016 Patient Education: [...] OF PLAN. 02/19/2016 Appointment: Yasmin Jones WPtel: [phone] [phone] (30 min) Complex 02/19/2016 Patient Education: [...] Completed 04/28/2014 [facility] [phone] [phone] Follow up 12/27/2013 Visit Plan: Hypertension - well annamarie valdes - continue with current medications, continue with no added salt diet. Pt has been encouraged to exercise daily. The pt has been advised to call the office if there are any acute concerns about change in blood pressure readings at home. 12/28/2012 [facility]ment: [facility] [phone] [phone] New Patient 12/28/2012 Patient Education: Patient Medication [...]
--- OUTSIDE RECORDS SUMMARY | 2019-08-20 18:44 | XMS REPORT | CCD ---
Author Author Ankit Jones Organization Lashell Friend MD, [facility] Address [address] [place] [address] Phone Care Team Providers Care Freezer Tunnel Operator Name Role Phone PP Unavailable CCM Unavailable Summary Purpose Interface Exchange Insurance Providers Payer name Policy type / Coverage type Covered democrat ID Effective Begin Date Effective End Date Blue Cross Blue Shield [facility] e Cross/Blue Shield [id number] Unknown Unk nown Family history Brother Diagnosis [...] ntly employed 12/28/[address]: [id number] Never smoker 12/28/2012 Alcohol history Unknown occasionally [...] Fill Instructions atenolol 25 mg tablet RxNorm: 822772 TAKE 1 TABLET BY MOUTH ONCE DAILY 08/02/2018 No Stop Date Active atenolol 25 mg tablet RxNorm: 122335 Tablet(s) TAKE ONE TABLET BY MOUTH ONCE DAILY 07/01/2017 06/25/2018 Inactive atenolol 25 mg tablet RxNorm: 774937 TAKE ONE TABLET BY MOUTH ONCE DAILY 06/02/2017 06/30/2017 In active atenolol 25 mg tablet RxNorm: 496982 TAKE ONE TABLET BY MOUTH ONCE DAILY 04/01/2017 06/01/2017 In active atenolol 25 mg tablet RxNorm: 206968 Tablet(s) TAKE ONE TABLET BY MOUTH ONCE DAILY 11/24/2016 03/23/2017 Inactive atenolol 25 mg tablet RxNorm: 637930 TAKE ONE TABLET BY MOUTH ONCE DAILY 08/25/2016 11/22/2016 In active atenolol 25 mg tablet RxNorm: 570771 1 Tablet(s) PO daily 02/19/2016 08/16/2016 Inactive lisinopril 20 mg tablet RxNorm: 856594 1 Tablet(s) PO daily 02/14/2016 02/18/2016 Inactive lisinopril 20 mg tablet RxNorm: 457799 1 Tablet(s) PO daily 02/12/2015 02/06/2016 Inactive lisinopril 10 mg tablet RxNorm: 988094 Tablet(s) TAKE ONE TABLET BY MOUTH ONCE DAILY 02/06/2015 02/11/2015 Inactive lisinopril 20 mg tablet RxNorm: 864513 1 Tablet(s) PO daily 04/28/2014 01/22/2015 Inactive lisinopril 10 mg tablet RxNorm: 299680 TAKE ONE TABLET BY MOUTH ONCE DAILY 04/27/2014 01/20/2015 In active lisinopril 10 mg tablet RxNorm: 189717 1 Tablet(s) PO daily 06/28/2013 03/24/2014 Inactive lisinopril 10 mg tablet RxNorm: 408129 1 Tablet(s) PO daily 12/28/2012 06/25/2013 Inactive lisinopril 10 mg tablet RxNorm: 511981 1 Tablet(s) PO daily No Start Date [...] Item Item Code Result Date Rast Tomato 84844 TOMATO <0.10 kU/L 05/08/2016 [place] 90363 ALLERG EN INTERPRETATION 05/08/2016 Allergen Profile Food-Basic 14306 IMMUNOGLOBULIN E . 05/08/2016 Allergen Profile Food-Basic 61639 IMMUNOGLOBULIN E 68 IU/mL 05/08/2016 Allergen Profile Food-Basic 92495 FOOD . 05/08/2016 Allergen Profile Food-Basic 22367 COD <0.10 kU/L 05/08/2016 Allergen Profile Food-Basic 94275 CORN <0.10 kU/L 05/08/2016 Allergen Profile Food-Basic 60472 EGG WHITE 0.44 kU/L 05/08/2016 Allergen Profile Food-Basic 97789 MILK 0.16 kU/L 05/08/2016 Allergen Profile Food-Basic 75949 PEANUT 0.19 kU/L 05/08/2016 Allergen Profile Food-Basic 01512 SHRIMP <0.10 kU/L 05/08/2016 Allergen Profile Food-Basic 63013 SOYBEAN <0.10 kU/L 05/08/2016 Allergen Profile Food-Basic 24883 WALNUT <0.10 kU/L 05/08/2016 Allergen Profile Food-Basic 84436 WHEAT <0.10 kU/L 05/08/2016 Allergen Profile Food-Basic 67373 SESAME SEED <0.10 kU/L 05/08/2016 Allergen Profile Food-Basic 13269 ALLERGEN INTERPRETATION 05/08/2016 Allergen Profile Food-Basic 80803 Clam <0.10 kU/L 05/08/2016 Allergen Profile Food-Basic 72546 SCALLOP <0.10 kU/L 05/08/2016 Cbc With Differential [...] 32.8 pg 05/06/2016 Cbc With Differential Ord2 Fisher% 16.3 % 05/06/2016 Cbc With Differential Ord2 [...] 1.64 K/ul 05/06/2016 Cbc With Differential Ord2 Fisher ABS# 1.0 K/ul 05/06/2016 Cbc With Differential Ord2 Eos ABS# 0.1 K/ul 05/06/2016 Cbc With Differential Ord2 Baso ABS# 0.0 K/ul 05/06/2016 Comp Metabolic Pmp718 NA 138 mEq/L 05/06/2016 Comp Metabolic Nyq188 K 4.1 mEq/L 05/06/2016 Comp Metabolic Tcs238 CL 101 mEq/L 05/06/2016 Comp Metabolic Hag740 CO2 31.0 mEq/L 05/06/2016 Comp Metabolic Tde121 AN ION GAP 10 05/06/2016 Comp Metabolic Wdq670 GL UCOSE 83 mg/dL 05/06/2016 Comp Metabolic Fyw438 Cr eat 0.9 mg/dL 05/06/2016 Comp Metabolic Giz982 eG FR 101 ml/min/1.73m2 04/17 Comp Metabolic Xxp445 BUN 15 mg/dL 05/06/2016 Comp Metabolic Ucc444 B/ C Ratio 17.0 Ratio 05/06/2016 Comp Metabolic Jxw600 CA LCIUM 9.8 mg/dL 05/06/2016 Comp Metabolic Dmy187 AL K PHOS 46 U/L 05/06/2016 Comp Metabolic Ebz032 T(SGOT) 19 U/L 05/06/2016 Comp Metabolic Gsp198 AL T(SGPT) 26 U/L 05/06/2016 Comp Metabolic Zcu352 BI LI T 0.9 mg/dL 05/06/2016 Comp Metabolic Zar382 AL BUMIN 4.5 g/dL 05/06/2016 Comp Metabolic Jhx831 TP RO 7.1 g/dL 05/06/2016 Comp Metabolic Unx213 GL OB 2.6 g/dL 05/06/2016 Comp Metabolic Xmr878 A/ G Ratio 1.7 Ratio 05/06/2016 Comp Metabolic Ukc932 Os mo 276 mOsmo 05/06/2016 Comp Metabolic Clh662 NA 134 mEq/L 12/15/2014 Comp Metabolic Fyz638 K 4.4 mEq/L 12/15/2014 Comp Metabolic Odm661 CL 100 mEq/L 12/15/2014 Comp Metabolic Csy843 CO2 29.0 mEq/L 12/15/2014 Comp Metabolic Ggx077 AN ION GAP 9 12/15/2014 Comp Metabolic Gxh553 GL UCOSE 84 mg/dL 12/15/2014 Comp Metabolic Cyn597 Cr eat 1.0 mg/dL 12/15/2014 Comp Metabolic Viu027 eG FR 93 ml/min/1.73m2 12/15 Comp Metabolic Qrs459 BUN 16 mg/dL 12/15/2014 Comp Metabolic Jsx236 B/ C Ratio 16.8 Ratio 12/15/2014 Comp Metabolic Qzx602 CA LCIUM 9.5 mg/dL 12/15/2014 Comp Metabolic Sqy390 AL K PHOS 50 U/L 12/15/2014 Comp Metabolic Gog524 T(SGOT) 20 U/L 12/15/2014 Comp Metabolic Dfc734 AL T(SGPT) 30 U/L 12/15/2014 Comp Metabolic Eya346 BI LI T 0.9 mg/dL 12/15/2014 Comp Metabolic Pdu390 AL BUMIN 4.6 g/dL 12/15/2014 Comp Metabolic Ndz290 TP RO 7.2 g/dL 12/15/2014 Comp Metabolic Dcu793 GL OB 2.7 g/dL 12/15/2014 Comp Metabolic Ujc953 A/ G Ratio 1.7 Ratio 12/15/2014 Comp Metabolic Qfb037 Os mo 269 mOsmo 12/15/2014 Cbc With [...] 1: 132/80 Code: 8480-6 BMI: 29.1 Code: 52811-3 Heart Rate 1: 75 bpm Height: 5'11" SpO2: 97% Weight: 209 lbs 06/11/2017 Blood Pressure 1: 122/84 Code: 8480-6 BMI: 29.0 Code: 25565-4 Heart Rate 1: 80 bpm Height: 5'11" SpO2: 97% Weight: 208 lbs 05/06/2016 Blood Pressure 1: 124/72 Code: 8480-6 BMI: 28.6 Code: 72693-8 Heart Rate 1: 81 bpm Height: 5'11" SpO2: 96% Weight: 205 lbs 02/19/2016 Blood Pressure 1: 134/74 Code: 8480-6 BMI: 27.9 Code: 05116-0 Heart Rate 1: 106 bpm Height: 5'11" SpO2: 97% Weight: 200 lbs 04/28/2014 Blood Pressure 1: 150/100 Code: 8480-6 BMI: 26.8 Code: 15802-3 Heart Rate 1: 88 bpm Height: 5'11" Weight: 192 lbs 12/28/2012 Blood Pressure 1: 122/88 Code: 8480-6 BMI: 27.6 Code: 79908-5 Heart Rate 1: 72 bpm Height: 5'11" [...] Essential (primary) hypertension[ICD10: I10] Chel Friend MD, [facility] CPT-4: 24945 08/06/2018 [id number] EST. PATIENT, LEVEL III Diagnosis: Essential (primary) hypertension[ICD10: I10] Chel Friend MD, [facility] CPT-4: 61093 06/11/2017 ([id number]) 67444 EST. P ATIENT, LEVEL III Diagnosis: Angioneurotic edema, initial encounter[ICD10: T78.3XXA] Diagnosis: Essential (primary) hypertension[ICD10: I10] Yasmin Friend MD, [facility] CPT-4: 00534 05/06/2016 ([id number]) 94555 EST. P ATIENT, LEVEL III Diagnosis: Essential (primary) hypertension[ICD10: I10] Yasmin Friend MD, [facility] CPT-4: 71537 02/19/2016 ([id number]) 90192 EST. P ATIENT, LEVEL III Diagnosis: ESSENTIAL HYPERTENSION[ICD9: 401.9] [facility] CPT-4: 10841 04/28/2014 ([id number]) OFFICE/OUTPA TIENT VISIT NEW Diagnosis: ESSENTIAL HYPERTENSION[SNOMED: 34220603] Yasmin Friend MD, [facility] CPT-4: 87941 12/28/2012 Plan of Care Planned Activity Notes [...] at home. 08/06/2018 Appointment: Chel Terrell WPtel: [address] [place], [place] [phone] (30 min) [facility] 08/06/2018 Patient Education: Patient Medication Summary Completed 08/06/2018 Visit Plan: Hypertension - well con trolled - continue with current medications, continue with no added salt diet. Pt has been encouraged to exercise daily. The pt has been advised to call the office if there are any acute concerns about change in blood pressure readings at home. 06/11/2017 Appointment: Chel Terrell WPtel: [phone] [phone] (15 min) Moderate 06/11/2017 Patient Education: Patient Medication Summary Completed 06/11/2017 Visit Plan: Swelling of lips-d/c'd rylee inhibitor and symptoms persist intermittently-notices more after tomato based foods-will check basic food allergy panel as well as tomato. Instructed patient to call if symptoms persist or worsen. Patient verbalized understanding of plan. 05/06/2016 Appointment: Yasmin Jones WPtel: [phone] [phone] (15 min) Moderate 05/06/2016 Patient Education: Patient [...] OF PLAN. 02/19/2016 Appointment: Yasmin Jones WPtel: [phone] [phone] (30 min) Complex 02/19/2016 Patient Education: Patient [...] Completed 04/28/2014 [facility] [phone] [phone] Follow up 12/27/2013 Visit Plan: Hypertension - well annamarie valdes - continue with current medications, continue with no added salt diet. Pt has been encouraged to exercise daily. The pt has been advised to call the office if there are any acute concerns about change in blood pressure readings at home. 12/28/2012 App[facility]ment[facility] [phone] [phone] New Patient 12/28/2012 Patient Education: Patient Medication [...]
[2019-08-20] MEDS ORDERED: LIDOCAINE 2% 20 ML (XYLOCAINE) VIAL INJ STA (18:45)
[2019-08-20] MEDS ORDERED: TETANUS,DIPTH,PERTUSS P/F (BOOSTRIX) 0.5 ML VIAL IM ONE (18:45)
--- OUTSIDE RECORDS SUMMARY | 2019-08-20 18:45 | XMS REPORT | CCD ---
Author Author Ankit Jones Organization Lashell Friend MD, [facility] Address [address] [place] [address] Phone Care Team Providers Care Dining Room Maid Name Role Phone PP Unavailable CCM Unavailable Summary Purpose Interface Exchange Insurance Providers Payer name Policy type / Coverage type Covered democrat ID Effective Begin Date Effective End Date Blue Cross Blue [facility] e Cross/Blue Shield [id number] Unknown Unk nown Family history Brother Diagnosis [...] ntly employed 12/28/[address]: [id number] Never smoker 12/28/2012 Alcohol history Unknown occasionally drinks alcohol 12/28/2012 Has the patient ever used illegal drugs? Unknown Has never used illegal drugs 013 Allergies, Adverse Reactions, Alerts Allergies, Adverse Reactions, Alerts data not found Past Medical History Illness Codes Condition Status Onset Date Resolved Date Angioneurotic edema, initial encounter ICD-9: 995.1 ICD-10: T78.3XXA Active 05/06/2016 Unknown Essential (primary) hypertension ICD-9: 401.9 ICD-10: I10 Active 02/18/2016 Unknown ESSENTIAL HYPERTENSION ICD-9: 401.9 Active 04/28/2014 Unknown Hypertension Unknown Active 12/28/2012 Unknow n Problems Condition Codes Effectiv e Dates Condition Status Angioneurotic edema, initial encounter ICD-9: 995.1 ICD-10: T78.3XXA 05/06/2016 Active Essential (primary) hypertension ICD-9: 401.9 ICD-10: I10 02/18/2016 Active ESSENTIAL HYPERTENSION ICD-9: 401.9 04/28/2014 Active Hypertension Unknown 12/28/2012 Active Medications Medication Codes Instruc tions Start Date Stop Date Sta tus Fill Instructions atenolol 25 mg tablet RxNorm: 997150 TAKE ONE TABLET BY MOUTH ONCE DAILY 08/25/2016 11/22/2016 Ac tive atenolol 25 mg tablet RxNorm: 324467 1 Tablet(s) PO daily 02/19/2016 08/16/2016 Inactive lisinopril 20 mg tablet RxNorm: 972677 1 Tablet(s) PO daily 02/14/2016 02/18/2016 Inactive lisinopril 20 mg tablet RxNorm: 159783 1 Tablet(s) PO daily 02/12/2015 02/06/2016 Inactive lisinopril 10 mg tablet RxNorm: 877423 Tablet(s) TAKE ONE TABLET BY MOUTH ONCE DAILY 02/06/2015 02/11/2015 Inactive lisinopril 20 mg tablet RxNorm: 623922 1 Tablet(s) PO daily 04/28/2014 01/22/2015 Inactive lisinopril 10 mg tablet RxNorm: 535648 TAKE ONE TABLET BY MOUTH ONCE DAILY 04/27/2014 01/20/2015 In active lisinopril 10 mg tablet RxNorm: 654626 1 Tablet(s) PO daily 06/28/2013 03/24/2014 Inactive lisinopril 10 mg tablet RxNorm: 255241 1 Tablet(s) PO daily 12/28/2012 06/25/2013 Inactive lisinopril 10 mg tablet RxNorm: 006675 1 Tablet(s) PO daily No Start Date 12/27/2012 Inactive Medication Administered No Medication Administered data Immunizations Vaccine Codes Date Status Influenza CVX: 141 12/16 completed Tetanus/Diptheria CVX: 113 02/15/1991 completed Assessments Condition Codes Effectiv e Dates Angioneurotic edema, initial encounter ICD-10: T78.3XXA ICD-9: 995.1 05/06/2016 Essential (primary) hypertension ICD -10: I10 ICD-9: 401.9 05/06/2016 ESSENTIAL HYPERTENSION ICD-9: 401.9 04/28/2014 Reason For Visit Reason For Visit Effective Dates Notes medication follow up 05/06/2016 medication follow up 02/19/2016 hypertension 04/28/2014 hypertension 12/28/2012 Results Observation Observation Code Item Item Code Result Date Rast Tomato 42475 TOMATO <0.10 kU/L 05/08/2016 [place]ato 14216 ALLERG EN INTERPRETATION 05/08/2016 Allergen Profile Food-Basic 48861 IMMUNOGLOBULIN E . 05/08/2016 Allergen Profile Food-Basic 89941 IMMUNOGLOBULIN E 68 IU/mL 05/08/2016 Allergen Profile Food-Basic 00296 FOOD . 05/08/2016 Allergen Profile Food-Basic 92449 COD <0.10 kU/L 05/08/2016 Allergen Profile Food-Basic 47815 CORN <0.10 kU/L 05/08/2016 Allergen Profile Food-Basic 49263 EGG WHITE 0.44 kU/L 05/08/2016 Allergen Profile Food-Basic 83824 MILK 0.16 kU/L 05/08/2016 Allergen Profile Food-Basic 03550 PEANUT 0.19 kU/L 05/08/2016 Allergen Profile Food-Basic 39209 SHRIMP <0.10 kU/L 05/08/2016 Allergen Profile Food-Basic 55843 SOYBEAN <0.10 kU/L 05/08/2016 Allergen Profile Food-Basic 50954 WALNUT <0.10 kU/L 05/08/2016 Allergen Profile Food-Basic 63804 WHEAT <0.10 kU/L 05/08/2016 Allergen Profile Food-Basic 79842 SESAME SEED <0.10 kU/L 05/08/2016 Allergen Profile Food-Basic 92411 ALLERGEN INTERPRETATION 05/08/2016 Allergen Profile Food-Basic 37967 Clam <0.10 kU/L 05/08/2016 Allergen Profile Food-Basic 35752 SCALLOP <0.10 kU/L 05/08/2016 Cbc With Differential Ord2 WBC 5.95 K/ul 05/06/2016 Cbc With Differential Ord2 RBC 5.21 M/ul 05/06/2016 Cbc With Differential Ord2 HGB 17.1 g/dl 05/06/2016 Cbc With Differential Ord2 Neut% 53.4 % 05/06/2016 Cbc With Differential Ord2 HCT 47.2 % 05/06/2016 Cbc With Differential Ord2 MCV 90.6 fl 05/06/2016 Cbc With Differential Ord2 Lymph% 27.6 % 05/06/2016 Cbc With Differential Ord2 MCH 32.8 pg 05/06/2016 Cbc With Differential Ord2 [place]% 16.3 % 05/06/2016 Cbc With Differential Ord2 [...] 1.64 K/ul 05/06/2016 Cbc With Differential Ord2 [place] ABS# 1.0 K/ul 05/06/2016 Cbc With Differential Ord2 Eos ABS# 0.1 K/ul 05/06/2016 Cbc With Differential Ord2 Baso ABS# 0.0 K/ul 05/06/2016 Comp Metabolic Hpy489 NA 138 mEq/L 05/06/2016 Comp Metabolic Zdz983 K 4.1 mEq/L 05/06/2016 Comp Metabolic Uub762 CL 101 mEq/L 05/06/2016 Comp Metabolic Czi576 CO2 31.0 mEq/L 05/06/2016 Comp Metabolic Lhz046 AN ION GAP 10 05/06/2016 Comp Metabolic Jkb055 GL UCOSE 83 mg/dL 05/06/2016 Comp Metabolic Ula527 Cr eat 0.9 mg/dL 05/06/2016 Comp Metabolic Lbi428 eG FR 101 ml/min/1.73m2 04/17 Comp Metabolic Win104 BUN 15 mg/dL 05/06/2016 Comp Metabolic Rqm042 B/ C Ratio 17.0 Ratio 05/06/2016 Comp Metabolic Zmr968 CA LCIUM 9.8 mg/dL 05/06/2016 Comp Metabolic Dqz058 AL K PHOS 46 U/L 05/06/2016 Comp Metabolic Khq346 T(SGOT) 19 U/L 05/06/2016 Comp Metabolic Boq107 AL T(SGPT) 26 U/L 05/06/2016 Comp Metabolic Hjw960 BI LI T 0.9 mg/dL 05/06/2016 Comp Metabolic Vri174 AL BUMIN 4.5 g/dL 05/06/2016 Comp Metabolic Xue259 TP RO 7.1 g/dL 05/06/2016 Comp Metabolic Ecw859 GL OB 2.6 g/dL 05/06/2016 Comp Metabolic Yft594 A/ G Ratio 1.7 Ratio 05/06/2016 Comp Metabolic Vgx407 Os mo 276 mOsmo 05/06/2016 Comp Metabolic Pny872 NA 134 mEq/L 12/15/2014 Comp Metabolic Hfp846 K 4.4 mEq/L 12/15/2014 Comp Metabolic Une124 CL 100 mEq/L 12/15/2014 Comp Metabolic Osf965 CO2 29.0 mEq/L 12/15/2014 Comp Metabolic Zts896 AN ION GAP 9 12/15/2014 Comp Metabolic Mlp376 GL UCOSE 84 mg/dL 12/15/2014 Comp Metabolic Kyr438 Cr eat 1.0 mg/dL 12/15/2014 Comp Metabolic Fri071 eG FR 93 ml/min/1.73m2 12/15 Comp Metabolic Zss074 BUN 16 mg/dL 12/15/2014 Comp Metabolic Aae634 B/ C Ratio 16.8 Ratio 12/15/2014 Comp Metabolic Ghu255 CA LCIUM 9.5 mg/dL 12/15/2014 Comp Metabolic Gql691 AL K PHOS 50 U/L 12/15/2014 Comp Metabolic Qfa857 T(SGOT) 20 U/L 12/15/2014 Comp Metabolic Zet164 AL T(SGPT) 30 U/L 12/15/2014 Comp Metabolic Tfh625 BI LI T 0.9 mg/dL 12/15/2014 Comp Metabolic Nnb613 AL BUMIN 4.6 g/dL 12/15/2014 Comp Metabolic Wue369 TP RO 7.2 g/dL 12/15/2014 Comp Metabolic Uys061 GL OB 2.7 g/dL 12/15/2014 Comp Metabolic Sms099 A/ G Ratio 1.7 Ratio 12/15/2014 Comp Metabolic Mtq895 Os mo 269 mOsmo 12/15/2014 Cbc With [...] Result Effective Dates Constitutional No recent illness 05/06/2016 Constitutional No [...] No Procedures data Vital Signs Date Vital 05/06/2016 Blood Pressure 1: 124/72 Code: 8480-6 BMI: 28.6 Code: 70023-1 Heart Rate 1: 81 bpm Height: 5'11" SpO2: 96% Weight: 205 lbs 02/19/2016 Blood Pressure 1: 134/74 Code: 8480-6 BMI: 27.9 Code: 32737-0 Heart Rate 1: 106 bpm Height: 5'11" SpO2: 97% Weight: 200 lbs 04/28/2014 Blood Pressure 1: 150/100 Code: 8480-6 BMI: 26.8 Code: 53875-3 Heart Rate 1: 88 bpm Height: 5'11" Weight: 192 lbs 12/28/2012 Blood Pressure 1: 122/88 Code: 8480-6 BMI: 27.6 Code: 57406-3 Heart Rate 1: 72 bpm Height: 5'11" Weight: 198 lbs Functional Status No Functional Status data History of Present Illness Symptom Name Status Resu lt Effective Date Notes medication follow up Location oral intake 05/06/2016 [...] Encounters Encounter Performer Loca tion Codes Date ([id number]) 22202 EST. P ATIENT, LEVEL III Diagnosis: Angioneurotic edema, initial encounter[ICD10: T78.3XXA] Diagnosis: Essential (primary) hypertension[ICD10: I10] Yasmin Friend MD, [facility] CPT-4: 95827 05/06/2016 ([id number] 27699 EST. P ATIENT, LEVEL III Diagnosis: Essential (primary) hypertension[ICD10: I10] Yasmin Friend MD, [facility] CPT-4: 02209 02/19/2016 ([id number]) 57045 EST. P ATIENT, LEVEL III Diagnosis: ESSENTIAL HYPERTENSION[ICD9: 401.9] Yasmin Friend MD, [facility] CPT-4: 29636 04/28/2014 ([id number]) OFFICE/OUTPA TIENT VISIT NEW Diagnosis: ESSENTIAL HYPERTENSION[SNOMED: 18869414] Yasmin Friend MD, [facility] CPT-4: 19067 12/28/2012 Plan of Care Planned Activity Notes C odes Status Date Visit Plan: Swelling of lips-d/c'd rylee i nhibitor and symptoms persist intermittently-notices more after tomato based foods-will check basic food allergy panel as well as tomato. Instructed patient to call if symptoms persist or worsen. Patient verbalized understanding of plan. 05/06/2016 Appointment: Yasmin Jones WPtel: [address] [place], [place] [phone] (15 min) Moderate 05/06/2016 Patient Education: Patient Medication Summary Completed 05/06/2016 Patient Education: Obesity Completed 05/06/2016 Visit Plan: Hypertension - well controll ed - continue with current medications, continue with no added salt diet. Pt has been encouraged to exercise daily.The pt has been advised to call the office if there are any acute concerns about change in blood pressure readings at home.SUSPECT LISINOPRIL CAUSING ANGIOEDEMA- INSTRUCTED PATIENT TO STOP LISINOPRIL AND START ATENOLOL. CALL IF SWELLING RETURNS. PATIENT VERBALIZED UNDERSTANDING OF PLAN. 02/19/2016 Appointment: Yasmin Jones WPtel: [phone] (30 min) Complex 02/19/2016 Patient Education: Patient Medication Summary Completed 02/19/2016 Patient Education: Obesity Completed 02/19/2016 Visit Plan: Hypertension - uncontrolled - the patient's medications have been modified [...] the office next week for practitioner to review.The pt is to call for acute concerns. 04/28/2014 Appointment: Follow up 04/28/2014 Patient Education: Patient Medication Summary Completed 04/28/2014 Patient Education: Hypertension Completed 04/28/2014 Appointment: Yasmin Jones WPtel: [phone] Follow up 12/27/2013 Visit Plan: Hypertension - well controll ed - continue with current medications, continue with no added salt diet. Pt has been encouraged to exercise daily.The pt has been advised to call the office if there are any acute concerns about change in blood pressure readings at home. 12/28/2012 Appointment: Yasmin Jones WPtel: [phone] New Patient 12/28/2012 Patient Education: Patient Medication [...]
--- OUTSIDE RECORDS SUMMARY | 2019-08-20 18:45 | XMS REPORT | Continuity of Care Document ---
Demographics Preferred Language Unknown Marital Status Unknown Hindu Affiliation Unknown Race Unknown Ethnic Group Unknown Author Organization Unknown Address Unknown Phone Unavailable Allergies There is no data. Medications There is no data. Problems Date Dx Coded Attending Type Code Diagnosis Diagnosed By 08/02/2019 W I10 Essent ial (primary) hypertension Chel Terrell 08/11/2019 W I10 Essent ial (primary) hypertension Chel Terrell Procedures There is no data. Results There is no data. Encounters ACCT No. Visit Date/Time Discharge Status Pt. Type Provider Facility Loc./Unit Complaint 210008/02/2019 07:59:00 Document Registration
--- OUTSIDE RECORDS SUMMARY | 2019-08-20 18:45 | XMS REPORT | CCD ---
Author Author Ankit Jones Organization Lashell Friend MD, [facility] Address [address] [place] [address] Phone Care Team Providers Care Toll Settlement Clerk Name Role Phone PP Unavailable CCM Unavailable Summary Purpose Interface Exchange Insurance Providers Payer name Policy type / Coverage type Covered green party ID Effective Begin Date Effective End Date Blue Cross Blue [facility] e Cross/Blue Shield [id number] Unknown Unk nown Family history Brother Diagnosis [...] ntly employed 12/28/[address]: [id number] Never smoker 12/28/2012 Alcohol history Unknown occasionally [...] Date Resolved Date Essential (primary) hypertension ICD-9: 401.9 ICD-10: I10 Active 02/18/2016 Unknown Angioneurotic edema, initial encounter ICD-9: 995.1 ICD-10: T78.3XXA Active 05/06/2016 Unknown ESSENTIAL HYPERTENSION ICD-9: 401.9 Active 04/28/2014 Unknown Hypertension Unknown Active 12/28/2012 Unknow n Problems Condition Codes Effectiv e Dates Condition Status Essential (primary) hypertension ICD-9: 401.9 ICD-10: I10 02/18/2016 Active Angioneurotic edema, initial encounter ICD-9: 995.1 ICD-10: T78.3XXA 05/06/2016 Active ESSENTIAL HYPERTENSION ICD-9: 401.9 04/28/2014 Active Hypertension Unknown 12/28/2012 Active Medications Medication Codes Instruc tions Start Date Stop Date Sta tus Fill Instructions atenolol 25 mg tablet RxNorm: 427666 TAKE 1 TABLET BY MOUTH ONCE DAILY 08/02/2018 No Stop Date Active atenolol 25 mg tablet RxNorm: 548981 Tablet(s) TAKE ONE TABLET BY MOUTH ONCE DAILY 07/01/2017 06/25/2018 Inactive atenolol 25 mg tablet RxNorm: 417083 TAKE ONE TABLET BY MOUTH ONCE DAILY 06/02/2017 06/30/2017 In active atenolol 25 mg tablet RxNorm: 306793 TAKE ONE TABLET BY MOUTH ONCE DAILY 04/01/2017 06/01/2017 In active atenolol 25 mg tablet RxNorm: 818281 Tablet(s) TAKE ONE TABLET BY MOUTH ONCE DAILY 11/24/2016 03/23/2017 Inactive atenolol 25 mg tablet RxNorm: 971950 TAKE ONE TABLET BY MOUTH ONCE DAILY 08/25/2016 11/22/2016 In active atenolol 25 mg tablet RxNorm: 987452 1 Tablet(s) PO daily 02/19/2016 08/16/2016 Inactive lisinopril 20 mg tablet RxNorm: 828000 1 Tablet(s) PO daily 02/14/2016 02/18/2016 Inactive lisinopril 20 mg tablet RxNorm: 593105 1 Tablet(s) PO daily 02/12/2015 02/06/2016 Inactive lisinopril 10 mg tablet RxNorm: 043174 Tablet(s) TAKE ONE TABLET BY MOUTH ONCE DAILY 02/06/2015 02/11/2015 Inactive lisinopril 20 mg tablet RxNorm: 064068 1 Tablet(s) PO daily 04/28/2014 01/22/2015 Inactive lisinopril 10 mg tablet RxNorm: 958380 TAKE ONE TABLET BY MOUTH ONCE DAILY 04/27/2014 01/20/2015 In active lisinopril 10 mg tablet RxNorm: 062907 1 Tablet(s) PO daily 06/28/2013 03/24/2014 Inactive lisinopril 10 mg tablet RxNorm: 774279 1 Tablet(s) PO daily 12/28/2012 06/25/2013 Inactive lisinopril 10 mg tablet RxNorm: 355817 1 Tablet(s) PO daily No Start Date [...] Visit Effective Dates Notes medication follow up 06/11/2017 medication follow up 05/06/2016 medication follow up 02/19/2016 hypertension 04/28/2014 hypertension 12/28/2012 Results Observation Observation Code Item Item Code Result Date Rast [place]ato 82084 TOMATO <0.10 kU/L 05/08/2016 [place] 82256 ALLERG EN INTERPRETATION 05/08/2016 Allergen Profile Food-Basic 06258 IMMUNOGLOBULIN E . 05/08/2016 Allergen Profile Food-Basic 77980 IMMUNOGLOBULIN E 68 IU/mL 05/08/2016 Allergen Profile Food-Basic 57957 FOOD . 05/08/2016 Allergen Profile Food-Basic 43026 COD <0.10 kU/L 05/08/2016 Allergen Profile Food-Basic 68172 CORN <0.10 kU/L 05/08/2016 Allergen Profile Food-Basic 59475 EGG WHITE 0.44 kU/L 05/08/2016 Allergen Profile Food-Basic 08123 MILK 0.16 kU/L 05/08/2016 Allergen Profile Food-Basic 63388 PEANUT 0.19 kU/L 05/08/2016 Allergen Profile Food-Basic 72351 SHRIMP <0.10 kU/L 05/08/2016 Allergen Profile Food-Basic 92978 SOYBEAN <0.10 kU/L 05/08/2016 Allergen Profile Food-Basic 72771 WALNUT <0.10 kU/L 05/08/2016 Allergen Profile Food-Basic 27164 WHEAT <0.10 kU/L 05/08/2016 Allergen Profile Food-Basic 27975 SESAME SEED <0.10 kU/L 05/08/2016 Allergen Profile Food-Basic 90987 ALLERGEN INTERPRETATION 05/08/2016 Allergen Profile Food-Basic 10484 Clam <0.10 kU/L 05/08/2016 Allergen Profile Food-Basic 55252 SCALLOP <0.10 kU/L 05/08/2016 Cbc With Differential [...] 32.8 pg 05/06/2016 Cbc With Differential Ord2 [place]% 16.3 % 05/06/2016 Cbc With Differential Ord2 [...] 1.64 K/ul 05/06/2016 Cbc With Differential Ord2 [place] ABS# 1.0 K/ul 05/06/2016 Cbc With Differential Ord2 Eos ABS# 0.1 K/ul 05/06/2016 Cbc With Differential Ord2 Baso ABS# 0.0 K/ul 05/06/2016 Comp Metabolic Zge942 NA 138 mEq/L 05/06/2016 Comp Metabolic Bbz046 K 4.1 mEq/L 05/06/2016 Comp Metabolic Tbo031 CL 101 mEq/L 05/06/2016 Comp Metabolic Uie375 CO2 31.0 mEq/L 05/06/2016 Comp Metabolic Irw293 AN ION GAP 10 05/06/2016 Comp Metabolic Gdl199 GL UCOSE 83 mg/dL 05/06/2016 Comp Metabolic Yxi476 Cr eat 0.9 mg/dL 05/06/2016 Comp Metabolic Dah005 eG FR 101 ml/min/1.73m2 04/17 Comp Metabolic Ddq440 BUN 15 mg/dL 05/06/2016 Comp Metabolic Sdd450 B/ C Ratio 17.0 Ratio 05/06/2016 Comp Metabolic Bxg619 CA LCIUM 9.8 mg/dL 05/06/2016 Comp Metabolic Uzz922 AL K PHOS 46 U/L 05/06/2016 Comp Metabolic Eel701 T(SGOT) 19 U/L 05/06/2016 Comp Metabolic Vbz167 AL T(SGPT) 26 U/L 05/06/2016 Comp Metabolic Lmc321 BI LI T 0.9 mg/dL 05/06/2016 Comp Metabolic Wnk504 AL BUMIN 4.5 g/dL 05/06/2016 Comp Metabolic Ogd947 TP RO 7.1 g/dL 05/06/2016 Comp Metabolic Epr260 GL OB 2.6 g/dL 05/06/2016 Comp Metabolic Qwu172 A/ G Ratio 1.7 Ratio 05/06/2016 Comp Metabolic Mgt584 Os mo 276 mOsmo 05/06/2016 Comp Metabolic Vgn498 NA 134 mEq/L 12/15/2014 Comp Metabolic Mpn597 K 4.4 mEq/L 12/15/2014 Comp Metabolic Dde080 CL 100 mEq/L 12/15/2014 Comp Metabolic Fyo803 CO2 29.0 mEq/L 12/15/2014 Comp Metabolic Zcf977 AN ION GAP 9 12/15/2014 Comp Metabolic Vqm783 GL UCOSE 84 mg/dL 12/15/2014 Comp Metabolic Nll329 Cr eat 1.0 mg/dL 12/15/2014 Comp Metabolic Rki745 eG FR 93 ml/min/1.73m2 12/15 Comp Metabolic Nnh392 BUN 16 mg/dL 12/15/2014 Comp Metabolic Ilw156 B/ C Ratio 16.8 Ratio 12/15/2014 Comp Metabolic Mre850 CA LCIUM 9.5 mg/dL 12/15/2014 Comp Metabolic Vei252 AL K PHOS 50 U/L 12/15/2014 Comp Metabolic Jfp125 T(SGOT) 20 U/L 12/15/2014 Comp Metabolic Fvl781 AL T(SGPT) 30 U/L 12/15/2014 Comp Metabolic Cal654 BI LI T 0.9 mg/dL 12/15/2014 Comp Metabolic Xxn759 AL BUMIN 4.6 g/dL 12/15/2014 Comp Metabolic Zzt168 TP RO 7.2 g/dL 12/15/2014 Comp Metabolic Mnd998 GL OB 2.7 g/dL 12/15/2014 Comp Metabolic Dfy030 A/ G Ratio 1.7 Ratio 12/15/2014 Comp Metabolic Nww377 Os mo 269 mOsmo 12/15/2014 Cbc With [...] Review of Systems System Result Effective Dates Eyes No eye discharge Eyes No eye [...] No Procedures data Vital Signs Date Vital 06/11/2017 Blood Pressure 1: 122/84 Code: 8480-6 BMI: 29.0 Code: 98548-9 Heart Rate 1: 80 bpm Height: 5'11" SpO2: 97% Weight: 208 lbs 05/06/2016 Blood Pressure 1: 124/72 Code: 8480-6 BMI: 28.6 Code: 72301-8 Heart Rate 1: 81 bpm Height: 5'11" SpO2: 96% Weight: 205 lbs 02/19/2016 Blood Pressure 1: 134/74 Code: 8480-6 BMI: 27.9 Code: 05415-6 Heart Rate 1: 106 bpm Height: 5'11" SpO2: 97% Weight: 200 lbs 04/28/2014 Blood Pressure 1: 150/100 Code: 8480-6 BMI: 26.8 Code: 41798-6 Heart Rate 1: 88 bpm Height: 5'11" Weight: 192 lbs 12/28/2012 Blood Pressure 1: 122/88 Code: 8480-6 BMI: 27.6 Code: 02185-7 Heart Rate 1: 72 bpm Height: 5'11" Weight: 198 lbs Functional Status No Functional Status data History of Present Illness Symptom Name Status Resu lt Effective Date Notes medication follow up Location oral intake 06/11/2017 [...] Essential (primary) hypertension[ICD10: I10] Chel Friend MD, [facility] CPT-4: 27998 06/11/2017 ([id number]) 06361 EST. P ATIENT, LEVEL III Diagnosis: Angioneurotic edema, initial encounter[ICD10: T78.3XXA] Diagnosis: Essential (primary) hypertension[ICD10: I10] [facility] CPT-4: 70058 05/06/2016 ([id number]) 71766 EST. P ATIENT, LEVEL III Diagnosis: Essential (primary) hypertension[ICD10: I10] [facility] CPT-4: 63848 02/19/2016 ([id number]) 41704 EST. [place], LEVEL III Diagnosis: ESSENTIAL HYPERTENSION[ICD9: 401.9] [facility] CPT-4: 03999 04/28/2014 ([id number]) OFFICE/OUTPA TIENT VISIT NEW Diagnosis: ESSENTIAL HYPERTENSION[SNOMED: 71826082] [facility] CPT-4: 94801 12/28/2012 Plan of Care Planned Activity Notes [...] at home. 06/11/2017 Appointment: Chel Terrell WPtel: [address] [place], [place] [phone] (15 min) Moderate 06/11/2017 Patient Education: Patient Medication Summary Completed 06/11/2017 Visit Plan: Swelling of lips-d/c'd rylee inhibitor and symptoms persist intermittently-notices more after tomato based foods-will check basic food allergy panel as well as tomato. Instructed patient to call if symptoms persist or worsen. Patient verbalized understanding of plan. 05/06/2016 Appointment: Yasmin Jones WPtel: [phone] (15 min) Moderate 05/06/2016 Patient Education: Patient [...] OF PLAN. 02/19/2016 Appointment: Yasmin Jones WPtel: [phone] (30 min) Complex 02/19/2016 Patient Education: Patient [...] Hypertension Completed 04/28/2014 Appointment: Yasmin Jones WPtel: [facility] [place] [address] Follow up 12/27/2013 Visit Plan: Hypertension - well con trolled - continue with current medications, continue with no added salt diet. Pt has been encouraged to exercise daily. The pt has been advised to call the office if there are any acute concerns about change in blood pressure readings at home. 12/28/2012 Appointment: Yasmin Jones WPtel: [phone] New Patient 12/28/2012 Patient Education: Patient Medication [...]
--- OUTSIDE RECORDS SUMMARY | 2019-08-20 18:45 | XMS REPORT | CCD ---
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 e Cross/Blue Shield [id number] Unknown Unk nown Family history Brother Diagnosis [...] ntly employed 12/28/[address]: 044191270 Never smoker 12/28/2012 Alcohol history Unknown occasionally [...] Fill Instructions atenolol 25 mg tablet RxNorm: 444027 TAKE ONE TABLET BY MOUTH ONCE DAILY 04/01/2017 No Stop Date Active atenolol 25 mg tablet RxNorm: 715346 Tablet(s) TAKE ONE TABLET BY MOUTH ONCE DAILY 11/24/2016 03/23/2017 Inactive atenolol 25 mg tablet RxNorm: 158593 TAKE ONE TABLET BY MOUTH ONCE DAILY 08/25/2016 11/22/2016 In active atenolol 25 mg tablet RxNorm: 916024 1 Tablet(s) PO daily 02/19/2016 08/16/2016 Inactive lisinopril 20 mg tablet RxNorm: 193077 1 Tablet(s) PO daily 02/14/2016 02/18/2016 Inactive lisinopril 20 mg tablet RxNorm: 811440 1 Tablet(s) PO daily 02/12/2015 02/06/2016 Inactive lisinopril 10 mg tablet RxNorm: 605088 Tablet(s) TAKE ONE TABLET BY MOUTH ONCE DAILY 02/06/2015 02/11/2015 Inactive lisinopril 20 mg tablet RxNorm: 674573 1 Tablet(s) PO daily 04/28/2014 01/22/2015 Inactive lisinopril 10 mg tablet RxNorm: 923251 TAKE ONE TABLET BY MOUTH ONCE DAILY 04/27/2014 01/20/2015 In active lisinopril 10 mg tablet RxNorm: 506624 1 Tablet(s) PO daily 06/28/2013 03/24/2014 Inactive lisinopril 10 mg tablet RxNorm: 127681 1 Tablet(s) PO daily 12/28/2012 06/25/2013 Inactive lisinopril 10 mg tablet RxNorm: 952337 1 Tablet(s) PO daily No Start Date [...] Item Item Code Result Date Rast Tomato 77052 TOMATO <0.10 kU/L 05/08/2016 Rast Tomato 12619 ALLERG EN INTERPRETATION 05/08/2016 Allergen Profile Food-Basic 09143 IMMUNOGLOBULIN E . 05/08/2016 Allergen Profile Food-Basic 33319 IMMUNOGLOBULIN E 68 IU/mL 05/08/2016 Allergen Profile Food-Basic 82861 FOOD . 05/08/2016 Allergen Profile Food-Basic 24767 COD <0.10 kU/L 05/08/2016 Allergen Profile Food-Basic 97659 CORN <0.10 kU/L 05/08/2016 Allergen Profile Food-Basic 63948 EGG WHITE 0.44 kU/L 05/08/2016 Allergen Profile Food-Basic 26995 MILK 0.16 kU/L 05/08/2016 Allergen Profile Food-Basic 39063 PEANUT 0.19 kU/L 05/08/2016 Allergen Profile Food-Basic 49133 SHRIMP <0.10 kU/L 05/08/2016 Allergen Profile Food-Basic 05700 SOYBEAN <0.10 kU/L 05/08/2016 Allergen Profile Food-Basic 62032 WALNUT <0.10 kU/L 05/08/2016 Allergen Profile Food-Basic 69421 WHEAT <0.10 kU/L 05/08/2016 Allergen Profile Food-Basic 64015 SESAME SEED <0.10 kU/L 05/08/2016 Allergen Profile Food-Basic 17953 ALLERGEN INTERPRETATION 05/08/2016 Allergen Profile Food-Basic 86926 Clam <0.10 kU/L 05/08/2016 Allergen Profile Food-Basic 47190 SCALLOP <0.10 kU/L 05/08/2016 Cbc With Differential [...] 32.8 pg 05/06/2016 Cbc With Differential Ord2 Burt% 16.3 % 05/06/2016 Cbc With Differential Ord2 [...] 1.64 K/ul 05/06/2016 Cbc With Differential Ord2 Burt ABS# 1.0 K/ul 05/06/2016 Cbc With Differential Ord2 Eos ABS# 0.1 K/ul 05/06/2016 Cbc With Differential Ord2 Baso ABS# 0.0 K/ul 05/06/2016 Comp Metabolic Llj412 NA 138 mEq/L 05/06/2016 Comp Metabolic Tfa674 K 4.1 mEq/L 05/06/2016 Comp Metabolic Ssg375 CL 101 mEq/L 05/06/2016 Comp Metabolic Utl236 CO2 31.0 mEq/L 05/06/2016 Comp Metabolic Ter892 AN ION GAP 10 05/06/2016 Comp Metabolic Pkc668 GL UCOSE 83 mg/dL 05/06/2016 Comp Metabolic Hyk006 Cr eat 0.9 mg/dL 05/06/2016 Comp Metabolic Zzb091 eG FR 101 ml/min/1.73m2 04/17 Comp Metabolic Bbe302 BUN 15 mg/dL 05/06/2016 Comp Metabolic Csi661 B/ C Ratio 17.0 Ratio 05/06/2016 Comp Metabolic Wbp431 CA LCIUM 9.8 mg/dL 05/06/2016 Comp Metabolic Mij954 AL K PHOS 46 U/L 05/06/2016 Comp Metabolic Uce491 T(SGOT) 19 U/L 05/06/2016 Comp Metabolic Gpf763 AL T(SGPT) 26 U/L 05/06/2016 Comp Metabolic Iyc314 BI LI T 0.9 mg/dL 05/06/2016 Comp Metabolic Sts036 AL BUMIN 4.5 g/dL 05/06/2016 Comp Metabolic Hny627 TP RO 7.1 g/dL 05/06/2016 Comp Metabolic Hpd751 GL OB 2.6 g/dL 05/06/2016 Comp Metabolic Tao669 A/ G Ratio 1.7 Ratio 05/06/2016 Comp Metabolic Mxq401 Os mo 276 mOsmo 05/06/2016 Comp Metabolic Xel771 NA 134 mEq/L 12/15/2014 Comp Metabolic Abb718 K 4.4 mEq/L 12/15/2014 Comp Metabolic Yvr495 CL 100 mEq/L 12/15/2014 Comp Metabolic Exs852 CO2 29.0 mEq/L 12/15/2014 Comp Metabolic Lis886 AN ION GAP 9 12/15/2014 Comp Metabolic [address]310 GL UCOSE 84 mg/dL 12/15/2014 Comp Metabolic Beq778 Cr eat 1.0 mg/dL 12/15/2014 Comp Metabolic Wml060 eG FR 93 ml/min/1.73m2 12/15 Comp Metabolic Tla089 BUN 16 mg/dL 12/15/2014 Comp Metabolic Zny072 B/ C Ratio 16.8 Ratio 12/15/2014 Comp Metabolic Hjq128 CA LCIUM 9.5 mg/dL 12/15/2014 Comp Metabolic Riy878 AL K PHOS 50 U/L 12/15/2014 Comp Metabolic Abh055 T(SGOT) 20 U/L 12/15/2014 Comp Metabolic Pum593 AL T(SGPT) 30 U/L 12/15/2014 Comp Metabolic Tpc519 BI LI T 0.9 mg/dL 12/15/2014 Comp Metabolic Kyt563 AL BUMIN 4.6 g/dL 12/15/2014 Comp Metabolic Agx403 TP RO 7.2 g/dL 12/15/2014 Comp Metabolic Bgo553 GL OB 2.7 g/dL 12/15/2014 Comp Metabolic Ykb573 A/ G Ratio 1.7 Ratio 12/15/2014 Comp Metabolic Lrj563 Os mo 269 mOsmo 12/15/2014 Cbc With [...] 1: 124/72 Code: 8480-6 BMI: 28.6 Code: 97135-0 Heart Rate 1: 81 bpm Height: 5'11" SpO2: 96% Weight: 205 lbs 02/19/2016 Blood Pressure 1: 134/74 Code: 8480-6 BMI: 27.9 Code: 36249-4 Heart Rate 1: 106 bpm Height: 5'11" SpO2: 97% Weight: 200 lbs 04/28/2014 Blood Pressure 1: 150/100 Code: 8480-6 BMI: 26.8 Code: 54521-2 Heart Rate 1: 88 bpm Height: 5'11" Weight: 192 lbs 12/28/2012 Blood Pressure 1: 122/88 Code: 8480-6 BMI: 27.6 Code: 91273-2 Heart Rate 1: 72 bpm Height: 5'11" [...] Encounters Encounter Performer Loca tion Codes Date ([id number]) [id number] EST. P ATIENT, LEVEL III Diagnosis: Angioneurotic edema, initial encounter[ICD10: T78.3XXA] Diagnosis: Essential (primary) hypertension[ICD10: I10] Yasmin Friend MD, [facility] CPT-4: 59161 05/06/2016 ([id number] EST. P ATIENT, LEVEL III Diagnosis: Essential (primary) hypertension[ICD10: I10] Yasmin Friend MD, [facility] CPT-4: 31591 02/19/2016 ([id number]) 45753 EST. P ATIENT, LEVEL III Diagnosis: ESSENTIAL HYPERTENSION[ICD9: 401.9] Yasmin Friend MD, [facility] CPT-4: 02388 04/28/2014 ([id number]) OFFICE/OUTPA TIENT VISIT NEW Diagnosis: ESSENTIAL HYPERTENSION[SNOMED: 16409344] Yasmin Friend MD, [facility] CPT-4: 32696 12/28/2012 Plan of Care Planned Activity Notes C odes Status Date Visit Plan: Swelling of lips-d/c'd rylee inhibitor and symptoms persist intermittently-notices more after tomato based foods-will check basic food allergy panel as well as tomato. Instructed patient to call if symptoms persist or worsen. Patient verbalized understanding of plan. 05/06/2016 Appointment: Yasmin Jones WPtel: [phone] (15 min) Moderate 05/06/2016 Patient Education: [...] OF PLAN. 02/19/2016 Appointment: Yasmin Jones WPtel: [phone] (30 min) Complex 02/19/2016 Patient Education: [...] Hypertension Completed 04/28/2014 Appointment: Yasmin Jones WPtel: [address] [place], [place] [phone] Follow up 12/27/2013 Visit Plan: Hypertension - well con trolled - continue with current medications, continue with no added salt diet. Pt has been encouraged to exercise daily. The pt has been advised to call the office if there are any acute concerns about change in blood pressure readings at home. 12/28/2012 Appointment: Yasmin Jones WPtel: [address] [place], [place] [phone] New Patient 12/28/2012 Patient Education: Patient Medication [...]
[2019-08-20] MEDS ORDERED: LIDOCAINE PF 2% 5 ML (XYLOCAINE) VIAL ONE (18:50)
[2019-08-20 18:54] LABS: BASOPHILS % (AUTO) 0 % (0-10); EOSINOPHILS # (AUTO) 0.2 10^3/uL (0.0-0.3); EOSINOPHILS % (AUTO) 2 % (0-10); HEMATOCRIT 44 % (40-54); LYMPHOCYTES # (AUTO) 3.8 X 10^3 (1.0-4.0); LYMPHOCYTES % (AUTO) 37 % (12-44); MEAN CORPUSCULAR HEMOGLOBIN 33 PG (25-34); MEAN CORPUSCULAR HGB CONC 36 G/DL (32-36); MEAN CORPUSCULAR VOLUME 91 FL (80-99); MONOCYTES # (AUTO) 1.7 X 10^3 (0.0-1.0); MONOCYTES % (AUTO) 16 % (0-12); NEUTROPHILS # (AUTO) 4.6 X 10^3 (1.8-7.8); NEUTROPHILS % (AUTO) 44 % (42-75); PLATELET COUNT 283 10^3/uL (130-400); RED CELL DISTRIBUTION WIDTH 12.4 % (10.0-14.5); WHITE BLOOD COUNT 10.3 10^3/uL (4.3-11.0)
[2019-08-20] MEDS ORDERED: ATEN25TA (18:59)
[2019-08-20 19:05] LABS: ALBUMIN 4.2 GM/DL (3.2-4.5); CHLORIDE 108 MMOL/L (98-107); POTASSIUM 4.5 MMOL/L (3.6-5.0); SODIUM 137 MMOL/L (135-145)
[2019-08-20 19:07] LABS: GLUCOSE 109 MG/DL (70-105)
[2019-08-20 19:08] LABS: CARBON DIOXIDE 17 MMOL/L (21-32)
[2019-08-20 19:09] LABS: BILIRUBIN,TOTAL 0.6 MG/DL (0.1-1.0)
[2019-08-20] MEDS ORDERED: RX-TRIMETH/SULFA. 160-800 MG (BACTRIM DS) TAB PPK#2 PO STA (19:10)
[2019-08-20 19:11] LABS: ALKALINE PHOSPHATASE 63 U/L (40-136); CREATININE SERUM 1.08 MG/DL (0.60-1.30); GFR ESTIMATED > 60
[2019-08-20 19:12] LABS: BUN/CREATININE RATIO 14
[2019-08-20 19:14] LABS: ALANINE AMINOTRANSFERASE 28 U/L (0-55); MAGNESIUM 2.3 MG/DL (1.6-2.4)
[2019-08-20 19:19] LABS: INR 0.9 (0.8-1.4); PROTHROMBIN TIME PATIENT 12.4 SEC (12.2-14.7)
[2019-08-20] MEDS ORDERED: SULF1TAB35 PO (19:29)
--- NOTE | 2019-08-20 19:30 | ED Upper Extremity ---
General Chief Complaint: Laceration Nursing Triage Note: TO ED PER W/C WITH LACERATION TO L WEB SPACE BETWEEN THUMB AND INDEX. PATIENT WAS GIVEN A W/C HAD SYNCOPE EPISODE IN PARKING LOT AND WAS PLACED IN W/C AND PRIOR TO GETTING IN BED PASSED OUT. FOR APX 2 SEC PATIENT HELP TO BED. COLOR IMPROVED. Nursing Sepsis Screen: No Definite Risk Source: patient History of Present Illness Date Seen by Provider: Aug 20, 2019 Time Seen by Provider: 18:35 Initial Comments PT ARRIVES VIA POV FROM HOME C/O LACERATION TO LEFT HAND, WHILE CUTTING AVOCADO OCCURRED JUST PRIOR TO ARRIVAL ON ARRIVAL TO WAITING ROOM, PT HAD BRIEF SYNCOPAL EPISODES X 2, LASTING 2-3 SECONDS EACH--WAS PROFUSELY DIAPHORETIC AND PALE WITH EPISODES NO INCONTINENCE AND NO INJURIES FROM EPISODES IMMEDIATELY ORIENTED X 4, WITH NO EVIDENCE OF POST-ICTAL SYMPTOMS, NO CONFUSION, ETC. PT DENIES HEADACHE, CHEST PAIN, PALPITATIONS, SHORTNESS OF BREATH NO NAUSEA/VOMITING NO HEADACHE OR VISION CHANGES SHORTLY AFTER SYNCOPE, STATES HE FEELS FINE. DENIES HISTORY OF SYNCOPE STATES HE HAS FELT FINE ALL DAY, AND NO RECENT ILLNESS HAD JUST FINISHED GRILLING BURGERS, AND WAS CUTTING UP AN AVOCADO FOR THE BURGERS, WHEN HE CUT HIS HAND STATES HE FEELS LIKE, BY THE TIME HE GOT HERE, THE ADRENALIN HAD WORN OFF AND HE BEGAN TO SWEAT AND PASSED OUT. NO PARESTHESIAS OR MOTOR DEFICITS ANYWHERE FULL ROM OF HAND/FINGERS PT IS RIGHT HANDED LAST TETANUS SHOT IS UNKNOWN Allergies and Home Medications Allergies Coded Allergies: No Known Drug Allergies (Unverified , 08/20/19) Home Medications Sulfamethoxazole/Trimethoprim 1 Each Tablet, 1 EACH PO BID Prescribed by: LAVELLE PAULA on 08/20/191928 Patient Home Medication List Home Medication List Reviewed: Yes Review of Systems Constitutional: see HPI EENTM: no symptoms reported Respiratory: no symptoms reported Cardiovascular: see HPI, syncope Gastrointestinal: no symptoms reported Genitourinary: no symptoms reported Musculoskeletal: no symptoms reported Skin: see HPI Psychiatric/Neurological: See HPI (SYNCOPE); Denies Headache, Denies Numbness, Denies Paresthesia, Denies Seizure, Denies Tingling, Denies Weakness Past Vrjgsiz-Myelmi-Dlryvn Hx Past Med/Social Hx: Reviewed and Corrections made Patient Social History Alcohol Use: Occasionally Uses Alcohol Beverage of Choice: Beer Recreational Drug Use: No Smoking Status: Never a Smoker Recent Foreign Travel: No Contact w/Someone Who Travel: No Recent Infectious Disease Expo: No Past Medical History Surgeries: Yes Orthopedic Respiratory: No Cardiac: Yes Hypertension Neurological: No Genitourinary: No Gastrointestinal: No Musculoskeletal: No Endocrine: No HEENT: No Cancer: No Psychosocial: No Integumentary: No Blood Disorders: No Physical Exam Vital Signs Vital Signs - First Documented 08/20/19 18:37 Temp 36.4 Pulse 53 Resp 18 B/P (MAP) 129/70 (89) Pulse Ox 96 Capillary Refill : Less Than 3 Seconds Height, Weight, BMI Height: '" Weight: lbs. oz. kg; 29.00 BMI Method: General Appearance: WD/WN, other (PALE AND PROFUSELY DIAPHORETIC ON ARRIVAL, HAVING JUST HAD 2 BRIEF SYNCOPAL EPISODES IN WAITING ROOM) HEENT: normal ENT inspection Neck: normal inspection Cardiovascular: regular rate, rhythm, no murmur Respiratory: normal breath sounds, no respiratory distress, no accessory muscle use Gastrointestinal: non tender, soft Back: normal inspection Elbow/Forearm: normal inspection Wrist: Yes normal inspection Hand: Left (3.5 CM SUB Q LACERATION TO LEFT HAND, IN WEB BETWEEN THUMB AND INDEX FINGER. MOTOR/SENSORY/VASCULAR INTACT. 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, no motor/sensory deficits, alert, normal mood/affect, oriented x 3; No abnormal cerebellar tests Skin: cool, diaphoresis, pallor Procedures/Interventions Other Wound Location LEFT HAND Wound Length (cm): 3.5 Wound's Depth, Shape: linear, sub Q Wound Explored: clean Anesthesia: 1% Lidocaine (2% LIDOCAINE) Suture: Ethlion Suture Size: 4-0 Number of Sutures: 7 Sterile Dressing Applied?: Yes Progress/Results/Core Measures Results/Orders Lab Results Laboratory Tests Test 08/20/19 18:45 08/20/19 18:52 Range/Units White Blood Count 10.3 4.3-11.0 10^3/uL Red Blood Count 4.86 4.35-5.85 10^6/uL Hemoglobin 16.0 13.3-17.7 G/DL Hematocrit 44 40-54 % Mean Corpuscular Volume 91 80-99 FL Mean Corpuscular Hemoglobin 33 25-34 PG Mean Corpuscular Hemoglobin Concent 36 32-36 G/DL Red Cell Distribution Width 12.4 10.0-14.5 % Platelet Count 283 130-400 10^3/uL Mean Platelet Volume 9.0 7.4-10.4 FL Neutrophils (%) (Auto) 44 42-75 % Lymphocytes (%) (Auto) 37 12-44 % Monocytes (%) (Auto) 16 H 0-12 % Eosinophils (%) (Auto) 2 0-10 % Basophils (%) (Auto) 0 0-10 % Neutrophils # (Auto) 4.6 1.8-7.8 X 10^3 Lymphocytes # (Auto) 3.8 1.0-4.0 X 10^3 Monocytes # (Auto) 1.7 H 0.0-1.0 X 10^3 Eosinophils # (Auto) 0.2 0.0-0.3 10^3/uL Basophils # (Auto) 0.0 0.0-0.1 10^3/uL Prothrombin Time 12.4 12.2-14.7 SEC INR Comment 0.9 0.8-1.4 Activated Partial Thromboplast Time 21 L 24-35 SEC Sodium Level 137 135-145 MMOL/L Potassium Level 4.5 3.6-5.0 MMOL/L Chloride Level 108 H 98-107 MMOL/L Carbon Dioxide Level 17 L 21-32 MMOL/L Anion Gap 12 5-14 MMOL/L Blood Urea Nitrogen 15 7-18 MG/DL Creatinine 1.08 0.60-1.30 MG/DL Estimat Glomerular Filtration Rate > 60 BUN/Creatinine Ratio 14 Glucose Level 109 H 70-105 MG/DL Calcium Level 9.0 8.5-10.1 MG/DL Corrected Calcium 8.8 8.5-10.1 MG/DL Magnesium Level 2.3 1.6-2.4 MG/DL Total Bilirubin 0.6 0.1-1.0 MG/DL Aspartate Amino Transf (AST/SGOT) 37 H 5-34 U/L Alanine Aminotransferase (ALT/SGPT) 28 0-55 U/L Alkaline Phosphatase 63 40-136 U/L Troponin I < 0.028 <0.028 NG/ML Total Protein 8.0 6.4-8.2 GM/DL Albumin 4.2 3.2-4.5 GM/DL Serum Alcohol 26 H <10 MG/DL Glucometer 104 70-110 MG/DL My Orders Orders - LAVELLE PAULA DO Accucheck Stat ONCE (08/20/19 18:41) Ed Iv/Invasive Line Start (08/20/19 18:41) Ekg Tracing (08/20/19 18:41) Monitor-Rhythm Ecg Trace Only (08/20/19 18:41) Alcohol (08/20/19 18:41) Cbc With Automated Diff (08/20/19 18:41) Comprehensive Metabolic Panel (08/20/19 18:41) Magnesium (08/20/19 18:41) Protime With Inr (08/20/19 18:41) Partial Thromboplastin Time (08/20/19 18:41) Troponin I (08/20/19 18:41) Ed Iv/Invasive Line Start (08/20/19 18:41) Lactated Ringers (Lr 1000 Ml Iv Solution (08/20/19 18:41) Dipht,Pertuss(Acell),Tet Adult (Boostrix (08/20/19 18:45) Lidocaine 2% Injection 20 Ml (Xylocaine (08/20/19 18:45) Wound Dressing-Ed (08/20/19 18:45) Lidocaine 2% Pf 5 Ml (Xylocaine 2% Pf) (08/20/19 18:50) Rx-Trimeth/Sulfameth Ds Tab (Rx-Bactrim/ (08/20/19 19:10) Medications Given in ED Current Medications Medications Dose Ordered Sig/Shelly Route Start Time Stop Time Status Last Admin Dose Admin Diphtheria/ Tetanus/Acell Pertussis 0.5 ml ONCE ONCE IM 08/20/19 18:45 08/20/19 18:46 DC 08/20/19 19:11 0.5 ML Lactated Ringer's 1,000 ml @ 0 mls/hr Q0M ONCE IV 08/20/19 18:41 08/20/19 18:44 DC 08/20/19 19:10 0 MLS/HR Lidocaine HCl 5 ml STK-MED ONCE .ROUTE 08/20/19 18:50 08/20/19 18:53 DC 08/20/19 19:01 5 ML Vital Signs/I&O 08/20/19 18:37 Temp 36.4 Pulse 53 Resp 18 B/P (MAP) 129/70 (89) Pulse Ox 96 Blood Pressure Mean: 89 FSBG Bedside Testing Finger Stick Blood Glucose: 104 Blood Glucose Action Taken: RN AND PROVIDER NOTIFIED Progress Progress Note : Progress Note PT GIVEN IV FLUIDS, AND HAD NO FURTHER PROBLEMS FOR REMAINDER OF ER STAY Initial ECG Impression Date: Aug 20, 2019 Initial ECG Impression Time: 18:45 Initial ECG Rate: 68 Initial ECG Rhythm: Normal Sinus Departure Impression Primary Impression: Laceration of left hand Additional Impressions: Vasovagal syncope Bocjhmjdsv-wxgvxbpav-mncrqqg (DPT) vaccination administered at current visit Disposition: HOME, SELF-CARE Condition: Stable Departure-Patient Inst. Patient Instructions: Diphtheria and Tetanus Toxoids, and Acellular Pertussis Vaccine, Laceration Repair With Stitches (DC), Syncope (Fainting) (DC) Add. Discharge Instructions: LEAVE DRESSING IN PLACE FOR 24 HOURS, THEN CLEAN TWICE A DAY WITH ANTIBACTERIAL SOAP AND WATER ON A Q-TIP OTHERWISE KEEP CLEAN AND DRY LIMITED USE OF LEFT HAND X 2 WEEKS SUTURES OUT IN 10 DAYS--RETURN TO ER FOR REMOVAL TYLENOL AND MOTRIN NEEDED FOR PAIN LOTS OF FLUIDS--WATER, BROTH, JELLO, GATORADE All discharge instructions reviewed with patient and/or family. Voiced understanding. Scripts Sulfamethoxazole/Trimethoprim (Bactrim Ds Tablet) 1 Each Tablet 1 EACH PO BID, #20 TAB Prov: LAVELLE PAULA DO 08/20/19 LAVELLE PAULA DO Aug 20, 2019 19:30
[2019-08-20 20:00] VITALS: BP 129/70
== END 2019-08-20 20:09 | disposition home or self-care (01) ==
LOC: EDUNIT# 18:37 → ER 18:39
DX: S61.412A Laceration without foreign body of left hand, initial encounter (principal); R55 Syncope and collapse; I10 Essential (primary) hypertension; Z23 Encounter for immunization; W26.0XXA Contact with knife, initial encounter
CPT/HCPCS: 80053; 82962; 83735; 84484; 85025; 85610; 85730; 93005; 93041; 99284; G0480; 36415; 80320; 90715